=== PATIENT | female | born 1985 | race American Indian/Alaskan Native ===

== ENCOUNTER 2020-05-03 11:29 | Outpatient (CLI) | payer OTHER ==
[2020-05-03] MEDS ORDERED: BETAMET ACET/BETAMET NA PH 6 MG/ML INJ 5 ML MDV IM SCH (11:36)
== END 2020-05-03 11:51 | disposition home or self-care (01) ==
LOC: TRG 11:29 → APU 11:29 → TRG 11:51
PROVIDERS: ATTEND Obstetrics & Gynecology
DX: O47.02 False labor before 37 completed weeks of gestation, second trimester (principal); Z3A.25 25 weeks gestation of pregnancy
CPT/HCPCS: 96372; J0702

== ENCOUNTER 2020-05-04 11:13 | Outpatient (CLI) | payer OTHER ==
[2020-05-04 12:11] VITALS: BP 143/98
[2020-05-04] MEDS ORDERED: BETAMET ACET/BETAMET NA PH 6 MG/ML INJ 5 ML MDV IM ONE (12:57)
== END 2020-05-04 13:15 | disposition home or self-care (01) ==
LOC: TRG 11:13 → APU 11:15 → TRG 13:15
PROVIDERS: ATTEND Obstetrics & Gynecology
DX: O47.02 False labor before 37 completed weeks of gestation, second trimester (principal); Z3A.26 26 weeks gestation of pregnancy
CPT/HCPCS: 96372; J0702

== ENCOUNTER 2020-05-06 13:57 | Inpatient (IN) | payer OTHER ==
[2020-05-06] MEDS ORDERED: LACTATED RINGERS 500 ML IV ONE (14:50)
[2020-05-06] MEDS ORDERED: ACETAMINOPHEN 325 MG TAB PO PRN (14:53)
[2020-05-06] MEDS ORDERED: DOCUSATE SODIUM 100 MG CAP PO PRN (14:53)
[2020-05-06] MEDS ORDERED: LACTATED RINGERS 1,000 ML IV SCH (15:00)
[2020-05-06] MEDS: hydrALAZINE 20 MG/1 ML INJ IV PRN ×2 (16:24→17:05)
[2020-05-06 16:42] LABS: Basophils % (Auto) 0.1 % (0.0-1.8); Eosinophils % (Auto) 0.3 % (0.0-4.3); Hematocrit 31.6 % (30.3-42.9); Hemoglobin 10.5 gm/dl (10.1-14.3); Lymphocytes % (Auto) 18.3 % (13.4-35.0); Mean Corpuscular HGB Conc 33 % (30-34); Mean Corpuscular Volume 89 fl (79-97); Monocytes % (Auto) 9.6 % (0.0-7.3); Platelet Count 223 K/mm3 (140-440); Red Blood Count 3.57 M/mm3 (3.65-5.03); Red Cell Distribution Width 14.7 % (13.2-15.2)
[2020-05-06 17:10] LABS: Alanine Aminotransferase 363 units/L (7-56)
[2020-05-06 18:15] LABS: Bilirubin,Urine NEG (Negative); Blood,Urine SM (Negative); Color,Urine Yellow (Yellow); Urobilinogen,Urine < 2.0 mg/dL (<2.0)
[2020-05-06 18:18] LABS: Protein,Urine >500 mg/dL (Negative)
[2020-05-06] MEDS: carvediloL 25 MG TAB PO SCH (22:35)
[2020-05-07] MEDS: hydrALAZINE 20 MG/1 ML INJ IV PRN ×4 (02:23→18:29)
[2020-05-07] MEDS ORDERED: ACETAMINOPHEN 500 MG TAB PO PRN (04:01)
[2020-05-07] MEDS: PRENATAL VIT27-FE FUMARATE-FOLIC ACID VIT TAB PO SCH ×2 (10:48→11:16)
[2020-05-07] MEDS: carvediloL 25 MG TAB PO SCH ×2 (10:49→22:07)
--- NOTE | 2020-05-07 12:03 | History and Physical Report ---
History of Present Illness Date of examination: 05/07/20 Date of admission: 05/06/20 13:57 Chief complaint: chronic hypertension History of present illness: 35y/o @ 26+3 weeks presents for inpatient management. Her course is complicated by multi co-morbidities to include chronic hypertension, cardiovascular compromise, chronic renal insufficiency. Patient is being followed by MFM with recent findings of IUGR. Blood pressures have been labile on Carvedilol. Patient received betamethasone 05/02/20. Patient admits this was an unplanned . Will need to schedule permanent sterilization after delivery. Past History Past Medical History: hypertension, other (heart failure; chronic renal insufficiency) Past Surgical History: no surgical history Social history: single - Obstetrical History Expected Date of Delivery: 08/10/20 Actual Gestation: 26 Week(s) 3 Day(s) : 3 Para: 1 Hx # Term Pregnancies: 1 Number of Pregnancies: 1 Spontaneous Abortions: 0 Induced : 0 Number of Living Children: 2 Medications and Allergies Allergies Allergy/AdvReac Type Severity Reaction Status Date / Time No Known Allergies Allergy Verified 05/03/20 11:34 Home Medications Medication Instructions Recorded Confirmed Last Taken Type carvediloL [Coreg] 25 tab PO BID 05/06/20 05/06/20 05/06/20 07:30 History Active Meds: Active Medications Acetaminophen (Acetaminophen 500 Mg Tab) 1,000 mg PO Q4H PRN PRN Reason: Headache Last Admin: 05/07/20 04:13 Dose: 1,000 mg Documented by: Acetaminophen (Acetaminophen 325 Mg Tab) 650 mg PO Q4H PRN PRN Reason: Pain MILD(1-3)/Fever >100.5 Carvedilol (Carvedilol 25 Mg Tab) 25 mg PO BID [facility] Last Admin: 05/07/20 10:49 Dose: 25 mg Documented by: Docusate Sodium (Docusate Sodium 100 Mg Cap) 100 mg PO Q12H PRN PRN Reason: Constipation Hydralazine HCl (Hydralazine 20 Mg/1 Ml Inj) 5 mg IV Q30MIN PRN PRN Reason: Blood Pressure Last Admin: 05/07/20 09:37 Dose: 5 mg Documented by: Multivitamins/Iron/Calcium ( [id number] Fumarate-Folic Acid Vit Tab) 1 each PO QDAY [facility] Last Admin: 05/07/20 11:16 Dose: Not Given Documented by: Review of Systems All systems: negative - Vital Signs Vital signs: Vital Signs Pulse BP 96 H 154/109 05/06/20 14:51 05/06/20 14:51 Temp Pulse Resp BP Pulse Ox 97.8 F 95 H 20 141/99 100 05/07/20 08:01 05/07/20 11:53 05/07/20 08:01 05/07/20 11:37 05/07/20 11:53 - Physical Exam Breasts: Positive: deferred Lungs: Positive: Clear to auscultation Abdomen: Positive: normal appearance Results Result Diagrams: 05/06/20 14:50 05/06/20 14:50 Abnormal lab results 05/06/20 05/06/20 05/06/20 Range/Units 14:50 14:50 16:55 RBC 3.57 L (3.65-5.03) M/mm3 [place] % (Auto) 9.6 H (0.0-7.3) % [place] # (Auto) 1.0 H (0.0-0.8) K/mm3 Seg Neutrophils % 71.7 H (40.0-70.0) % AST 152 H (5-40) units/L ALT 363 H (7-56) units/L Lactate Dehydrogenase 294 H (91-180) units/L Urine WBC (Auto) 12.0 H (0.0-6.0) /HPF U Epithel Cells (Auto) 18.0 H (0-13.0) /HPF All other labs normal. Assessment and Plan - Patient Problems (1) Chronic renal failure Current Visit: Yes Status: Acute Plan to address problem: patient admitted for prolonged inpatient management will consult hospitalist, NICU, M (2) Heart failure Current Visit: Yes Status: Acute (3) Chronic hypertension affecting Current Visit: Yes Status: Acute (4) Intrauterine growth restriction (IUGR) affecting care of mother Current Visit: Yes Status: Acute
--- NOTE | 2020-05-07 12:30 | Consultation ---
History of Present Illness - Reason for Consult Consult date: 05/07/20 Medical Management Requesting physician: DYLON VALLADARES - History of Present Illness 35 YO Female at 23 weeks gestation with CHF, HTN. Consult placed by Dr. Olson form medical management. Patient seen and evaluated in her room. Patient resting comfortably in bed. Patient denies fever, chills, chest pain, palpitation, productive cough, recent ill contacts, shortness of breath, decre ased exercise tolerance, orthopnea, paroxysmal nocturnal dyspnea, or known exposure to COVID-19. Patient denies pain. No reported nursing events. Past History Past Medical History: heart failure, hypertension Past Surgical History: No surgical history, Other (Reviewed) Social history: single. denies: smoking, alcohol abuse, prescription drug abuse Family history: hypertension Medications and Allergies Allergies Allergy/AdvReac Type Severity Reaction Status Date / Time No Known Allergies Allergy Verified 05/03/20 11:34 Home Medications Medication Instructions Recorded Confirmed Last Taken Type carvediloL [Coreg] 25 tab PO BID 05/06/20 05/06/20 05/06/20 07:30 History Active Meds: Active Medications Acetaminophen (Acetaminophen 500 Mg Tab) 1,000 mg PO Q4H PRN PRN Reason: Headache Last Admin: 05/07/20 04:13 Dose: 1,000 mg Documented by: Acetaminophen (Acetaminophen 325 Mg Tab) 650 mg PO Q4H PRN PRN Reason: Pain MILD(1-3)/Fever >100.5 Carvedilol (Carvedilol 25 Mg Tab) 25 mg PO BID [facility] Last Admin: 05/07/20 10:49 Dose: 25 mg Documented by: Docusate Sodium (Docusate Sodium 100 Mg Cap) 100 mg PO Q12H PRN PRN Reason: Constipation Hydralazine HCl (Hydralazine 20 Mg/1 Ml Inj) 5 mg IV Q30MIN PRN PRN Reason: Blood Pressure Last Admin: 05/07/20 09:37 Dose: 5 mg Documented by: Multivitamins/Iron/Calcium ( [id number] Fumarate-Folic Acid Vit Tab) 1 each PO QDAY [facility] Last Admin: 05/07/20 11:16 Dose: Not Given Documented by: Review of Systems Constitutional: no weight loss, no fever, no chills, no anorexia Ears, nose, mouth and throat: no ear pain, no ear discharge, no tinnitis, no decreased hearing, no nose pain, no nasal congestion Breasts: no change in shape, no swelling, no mass Cardiovascular: no chest pain, no orthopnea, no rapid/irregular heart beat, no syncope, no lightheadedness, no shortness of breath, no dyspnea on exertion, no paroxysmal nocturnal dyspnea, no claudication Respiratory: no cough, no excessive sputum, no hemoptysis, no shortness of breath, no dyspnea on exertion Gastrointestinal: no nausea, no vomiting, no diarrhea Genitourinary Female: no pelvic pain, no dysuria, no urinary frequency, no urgency Rectal: no pain, no incontinence, no bleeding Musculoskeletal: no neck stiffness, no neck pain, no shooting arm pain, no arm numbness/tingling, no low back pain, no shooting leg pain, no leg numbness/tingling Integumentary: no rash, no pruritis, no redness, no sores, no wounds Neurological: no paralysis, no weakness, no parathesias, no numbness, no tingling, no seizures, no syncope Psychiatric: no anxiety, no memory loss, no change in sleep habits, no sleep disturbances, no insomnia, no hypersomnia, no change in libido Endocrine: no cold intolerance, no heat intolerance, no polyphagia, no excessive thirst, no polydipsia, no excessive sweating Hematologic/Lymphatic: no easy bruising, no easy bleeding Allergic/Immunologic: no urticaria, no allergic rhinitis, no wheezing Exam - Constitutional Vitals: Temp Pulse Resp BP Pulse Ox 97.8 F 98 H 20 140/99 100 05/07/20 08:01 05/07/20 12:18 05/07/20 08:01 05/07/20 12:07 05/07/20 12:18 General appearance: Present: obese - EENT Eyes: Present: PERRL ENT: hearing intact, clear oral mucosa - Neck Neck: Present: supple, normal ROM - Respiratory Respiratory effort: normal Respiratory: bilateral: CTA - Cardiovascular Heart Sounds: Present: S1 & S2. Absent: rub, click - Extremities Extremities: pulses symmetrical, No edema Peripheral Pulses: within normal limits - Abdominal General gastrointestinal: Present: soft, non-tender, normal bowel sounds, other (Protuberant, gravid uterus) Female genitourinary: Present: normal - Integumentary Integumentary: Present: clear, warm, dry - Musculoskeletal Musculoskeletal: gait normal, strength equal bilaterally - Psychiatric Psychiatric: appropriate mood/affect, intact judgment & insight - Neurologic Neurologic: CNII-XII intact, moves all extremities Results - Labs CBC & Chem 7: 05/06/20 14:50 05/06/20 14:50 Labs: Abnormal lab results 05/06/20 05/06/20 05/06/20 Range/Units 14:50 14:50 16:55 RBC 3.57 L (3.65-5.03) M/mm3 [place] % (Auto) 9.6 H (0.0-7.3) % [place] # (Auto) 1.0 H (0.0-0.8) K/mm3 Seg Neutrophils % 71.7 H (40.0-70.0) % AST 152 H (5-40) units/L ALT 363 H (7-56) units/L Lactate Dehydrogenase 294 H (91-180) units/L Urine WBC (Auto) 12.0 H (0.0-6.0) /HPF U Epithel Cells (Auto) 18.0 H (0-13.0) /HPF Assessment and Plan - Patient Problems (1) Hypertension Current Visit: Yes Status: Acute Qualifiers: Hypertension type: essential hypertension Qualified Code(s): I10 - Essential (primary) hypertension Plan to address problem: Continue medical management with beta-[place] therapy, supportive care. Monitor blood pressure every shift. (2) Heart failure Current Visit: Yes Status: Acute Qualifiers: Heart failure chronicity: chronic Plan to address problem: Strict I's/O, monitor urine output every shift, daily weight, cardiology team consulted. Patient reports echocardiogram as outpatient which was completed approximately [address] Jay of [facility]. No active decompensation at this time.
--- NOTE | 2020-05-07 14:58 | Consultation ---
Consult Note - Parent Education I met with parent(s) and discussed the following:: Need for NICU admission, Poss ible need for intubation and surfactant or other resp support, Temperature regulation, Head ultrasounds to evaluate IVH, Eye exams for ROP screening, Possible need for IV fluids/TPN and IV antibiotics, Possible need for umbilical lines, Importance of providing breast milk & encouraged pumping aft delivery, Donor breast milk if baby meets criteria after , Slow feeding advancement and monitoring of tolerance. NG/OG feeds, Data for survival & survival without significant co-morbidities Parent(s) demonstrated understanding of all the information:: Yes Additional Comment: 26 weeks IUGR with absent end diastolic flow. Maternal hx of pre-eclampsia with severe features now with chronic renal insufficency and cardiac morbidity. Mother Received Betamethasone on 05/02. Assessment and Plan - Assessment Gestation:: 26 (26 weeks 3 days) Estimated Weight: ~700 g Baby's gender: Male - Plan Plan: Please notify NICU when delivery is imminent NICU will attend delivery Please call NICU with questions
[2020-05-07] MEDS: ACETAMINOPHEN 325 MG TAB PO PRN (20:53)
[2020-05-08] MEDS: hydrALAZINE 20 MG/1 ML INJ IV PRN ×4 (07:31→21:12)
[2020-05-08] MEDS: carvediloL 25 MG TAB PO SCH ×2 (09:55→21:56)
[2020-05-08] MEDS: PRENATAL VIT27-FE FUMARATE-FOLIC ACID VIT TAB PO SCH (09:57)
--- NOTE | 2020-05-08 11:19 | Progress Note ---
Assessment and Plan - Patient Problems (1) Chronic renal failure Current Visit: Yes Status: Acute (2) Heart failure Current Visit: Yes Status: Acute Qualifiers: Heart failure chronicity: chronic (3) Chronic hypertension affecting Current Visit: Yes Status: Acute (4) Intrauterine growth restriction (IUGR) affecting care of mother Current Visit: Yes Status: Acute Plan to address problem: will redraw chemistries and CBC Initiate magnesium sulfate therapy at 1 g an hour Anticipate that maternal- medicine will recommend delivery; awaiting consult currently will add labetalol to p.o. antihypertensive regimen (5) Preeclampsia Current Visit: Yes Status: Acute Subjective - Subjective Date of service: 05/08/20 Interval history: 35y/o @ 26+4 weeks presents for inpatient management. Patient has evidence of elevated liver function tests with normal platelet count. Laboratories will be repeated today. Also will initiate IV magnesium sulfate therapy at a decreased rate secondary to renal insufficiency. Patient denies any associated symptoms today. Discussed with patient the likelihood that we will need to proceed with induction of labor. Awaiting recommendations from maternal- medicine. Patient also exhibiting worsening blood pressure readings. Patient reports: no new complaints Objective - Vital Signs Vital Signs: Vital Signs - 12hr 05/07/20 05/08/20 05/08/20 23:37 00:07 00:37 Temperature Pulse Rate 94 H 93 H 94 H Respiratory Rate Blood Pressure 148/88 141/83 156/89 Blood Pressure [Right] 05/08/20 05/08/20 05/08/20 01:07 01:37 02:12 Temperature Pulse Rate 92 H 94 H 96 H Respiratory Rate Blood Pressure 145/96 150/93 141/98 Blood Pressure [Right] 05/08/20 05/08/20 05/08/20 02:13 02:37 03:07 Temperature 98.2 F Pulse Rate 90 93 H Respiratory 18 Rate Blood Pressure 169/108 161/111 Blood Pressure [Right] 05/08/20 05/08/20 05/08/20 03:37 04:07 04:37 Temperature Pulse Rate 92 H 96 H 95 H Respiratory Rate Blood Pressure 165/100 172/105 161/104 Blood Pressure [Right] 05/08/20 05/08/20 05/08/20 05:07 06:07 06:37 Temperature Pulse Rate 93 H 90 87 Respiratory Rate Blood Pressure 157/108 159/116 158/109 Blood Pressure [Right] 05/08/20 05/08/20 05/08/20 07:07 07:19 07:21 Temperature 97.5 F L Pulse Rate 88 92 H 92 H Respiratory 20 Rate Blood Pressure 156/111 151/111 Blood Pressure 151/111 [Right] 05/08/20 05/08/20 05/08/20 07:31 07:37 09:07 Temperature Pulse Rate 92 H 89 93 H Respiratory Rate Blood Pressure 151/111 141/101 160/95 Blood Pressure [Right] 05/08/20 05/08/20 05/08/20 09:37 09:55 10:07 Temperature Pulse Rate 93 H 93 H 95 H Respiratory Rate Blood Pressure 160/99 160/99 161/103 Blood Pressure [Right] 05/08/20 05/08/20 10:37 11:08 Temperature Pulse Rate 93 H 94 H Respiratory Rate Blood Pressure 155/100 161/108 Blood Pressure [Right] - Labs Labs: Abnormal Labs 05/06/20 05/06/20 05/06/20 14:50 14:50 16:55 RBC 3.57 L [place] % (Auto) 9.6 H [place] # (Auto) 1.0 H Seg Neutrophils % 71.7 H AST 152 H ALT 363 H Lactate Dehydrogenase 294 H Urine WBC (Auto) 12.0 H U Epithel Cells (Auto) 18.0 H
--- NOTE | 2020-05-08 11:32 | Consultation ---
Past History Past Medical History: heart failure, hypertension Past Surgical History: No surgical history, Other (Reviewed) Social history: single. denies: smoking, alcohol abuse, prescription drug abuse Family history: hypertension Medications and Allergies Allergies Allergy/AdvReac Type Severity Reaction Status Date / Time No Known Allergies Allergy Verified 05/03/20 11:34 Home Medications Medication Instructions Recorded Confirmed Last Taken Type carvediloL [Coreg] 25 tab PO BID 05/06/20 05/06/20 05/06/20 07:30 History Active Meds: Active Medications Acetaminophen (Acetaminophen 500 Mg Tab) 1,000 mg PO Q4H PRN PRN Reason: Headache Last Admin: 05/07/20 04:13 Dose: 1,000 mg Documented by: Acetaminophen (Acetaminophen 325 Mg Tab) 650 mg PO Q4H PRN PRN Reason: Pain MILD(1-3)/Fever >100.5 Last Admin: 05/07/20 20:53 Dose: 650 mg Documented by: Carvedilol (Carvedilol 25 Mg Tab) 25 mg PO BID [facility] Last Admin: 05/08/20 09:55 Dose: 25 mg Documented by: Docusate Sodium (Docusate Sodium 100 Mg Cap) 100 mg PO Q12H PRN PRN Reason: Constipation Hydralazine HCl (Hydralazine 20 Mg/1 Ml Inj) 5 mg IV Q30MIN PRN PRN Reason: Blood Pressure Last Admin: 05/08/20 07:31 Dose: 5 mg Documented by: Magnesium Sulfate (Magnesium Sulfate 40gm/1000ml) 40 gm in 1,000 mls @ 25 mls/hr IV DIRECT INDY Labetalol HCl (Labetalol 200 Mg Tab) 300 mg PO BID [facility] Multivitamins/Iron/Calcium ( [id number]-[id number] Fumarate-Folic Acid Vit Tab) 1 each PO QDAY [facility] Last Admin: 05/08/20 09:57 Dose: Not Given Documented by: Nifedipine (Nifedipine Xl 30 Mg Tab) 30 mg PO Q12HR [facility] Physical Examination Vital Signs Pulse BP 96 H 154/109 05/06/20 14:51 05/06/20 14:51 Results 05/06/20 14:50 05/06/20 14:50 Assessment and Plan full c/s dictated add nifedipine to coreg if ok w/ Dr. Diaz. thx
[2020-05-08] MEDS ORDERED: LACTATED RINGERS 1,000 ML ONE (11:40)
[2020-05-08] MEDS: MAGNESIUM SULFATE 40GM/1000ML 40 GM/1,000 ML BAG IV SCH ×2 (12:08→18:10)
[2020-05-08] MEDS: NIFEdipine XL 30 MG TAB PO SCH (12:31)
--- NOTE | 2020-05-08 14:14 | Consultation ---
History of Present Illness Consult date: 05/08/20 Requesting physician: DYLON VALLADARES Reason for consult: gestational hypertension History of present illness: As you are aware, this is a 35 year-old para 1102 who is currently at 26 weeks 4 day gestation based on an LUI of 08/10/20 This is a patient that has been followed by [facility] during this due to previous complicated by superimposed preeclampsia, congestive heart failure and renal insufficiency. At the time of admission her last her ultrasound showed: US 05/02/20 EFW at 709 grams 7% with AC at 4% and AEDF. At that time she DECLINED hospitalization. On Saturday she was noted to have elevated blood pressure at 156/118 and a repeat BP of 151/113. Patient does have a history of CHTN. Following admission she was noted to have markedly elevated LFTs suggestive of superimposed preeclampsia with severe features. We would recommend observation, stabilization followed by DELIVERY. Her baseline 24 hour urine was NOT AVAILABLE Her follow-up 24 hour urine is PENDING. PREVIOUS BLOOD PRESSURE: 157/99 PAST OBSTETRICAL HISTORY: 2010: at term. BW: 8 pounds 2012: at 34 weeks. BW: 4 pound complicated by CHF and superimposed preeclampsia. PAST MEDICAL HISTORY: See reports in patient's chart. Patient does have a history of chronic hypertension since 2018. Congestive heart failure since 2018 Renal heart failure (Idiopathic) chronic renal insufficiency with baseline cr eatinine 1.2 mg/dL (repeated couple weeks ago) PREVIOUS ECHOCARDIOGRAM: Question of heart failure history, awaiting Cardiology consultation - (ECHO done 02/17/20 states EF was 42-45% was at 30% 8 months ago - Dr. Jay) - Next appointment in April 2020 PREVIOUS ULTRASOUNDS AT [facility]: US 05/02/20 EFW at 709 grams 7% with AC at 4% and AEDF. At that time she DECLINED hospitalization. CURRENT MEDICATIONS: Continue Carvedilol 25 mg BID ULTRASOUND AT [facility] (see chart): PENDING. AVAILABLE LABS: 24 HOUR URINE: PENDING See chart. WBC: 10.8 HGB: 10.5 HCT: 31.6 PLT: 223 AST: 152 ALT: -363 - ABSENT END DIASTOLIC FLOW (AEDF) Absent end diastolic flow (AEDF) in an umbilical artery Doppler assessment is a useful feature which indicates underlying vascular stress if detected in mid or late . The associations of AEDV include: intra-uterine growth restriction (IUGR) increased risk of thrombocytopenia increased risk of necrotizing enterocolitis Past History Past Medical History: hypertension, other (heart failure; chronic renal insufficiency) Past Surgical History: no surgical history - Obstetrical History : 3 Medications and Allergies Allergies Allergy/AdvReac Type Severity Reaction Status Date / Time No Known Allergies Allergy Verified 05/03/20 11:34 Home Medications Medication Instructions Recorded Confirmed Last Taken Type carvediloL [Coreg] 25 tab PO BID 05/06/20 05/06/20 05/06/20 07:30 History Active Meds: Active Medications Acetaminophen (Acetaminophen 500 Mg Tab) 1,000 mg PO Q4H PRN PRN Reason: Headache Last Admin: 05/07/20 04:13 Dose: 1,000 mg Documented by: Acetaminophen (Acetaminophen 325 Mg Tab) 650 mg PO Q4H PRN PRN Reason: Pain MILD(1-3)/Fever >100.5 Last Admin: 05/07/20 20:53 Dose: 650 mg Documented by: Carvedilol (Carvedilol 25 Mg Tab) 25 mg PO BID [facility] Last Admin: 05/08/20 09:55 Dose: 25 mg Documented by: Docusate Sodium (Docusate Sodium 100 Mg Cap) 100 mg PO Q12H PRN PRN Reason: Constipation Hydralazine HCl (Hydralazine 20 Mg/1 Ml Inj) 5 mg IV Q30MIN PRN PRN Reason: Blood Pressure Last Admin: 05/08/20 12:54 Dose: 5 mg Documented by: Magnesium Sulfate (Magnesium Sulfate 40gm/1000ml) 40 gm in 1,000 mls @ 25 mls/hr IV DIRECT [facility] Last Admin: 05/08/20 12:08 Dose: 1 gm/hr, 25 mls/hr Documented by: Multivitamins/Iron/Calcium ( [id number] Fumarate-Folic Acid Vit Tab) 1 each PO QDAY [facility] Last Admin: 05/08/20 09:57 Dose: Not Given Documented by: Nifedipine (Nifedipine Xl 30 Mg Tab) 30 mg PO Q12H [facility] Last Admin: 05/08/20 12:31 Dose: 30 mg Documented by: - Vital Signs Vital signs: Vital Signs Pulse BP 96 H 154/109 05/06/20 14:51 05/06/20 14:51 Temp Pulse Resp BP Pulse Ox 97.5 F L 92 H 20 154/97 98 05/08/20 07:21 05/08/20 14:10 05/08/20 07:21 05/08/20 13:59 05/08/20 14:10 Results Result Diagrams: 05/06/20 14:50 05/06/20 14:50 All other labs normal. Assessment and Plan ASSESSMENT IUP at 26 weeks 4 day gestation. Admitted with new onset hypertension. Rule out preeclampsia with severe features. Abnormal Doppler on admission: AEDV growth restriction (per previous ultrasound). History of previous delivery with preeclampsia History of congestive heart failure Renal insufficiency Rule out atypical HELLP syndrome Magnesium sulfate for neuroprotection and eclampsia prophylaxis. Agree with added Labetalol. Category 1 tracing Not a candidate for outpatient management. Likely for delivery when stable RECOMMENDATIONS: 1. We would recommend continued inpatient management for this patient. 2. Repeat LFTs to rule out the (unlikely) possibility of lab error. 3. Continue with BPP and Doppler twice weekly. 4. Please obtain an initial EFW to follow-up the most recent assessment from [facility] earlier this month. 5. We agree with magnesium sulfate for neuroprotection. 6. Patient has previously received steroids for lung maturation. 7. Appreciate a neonatology consultation. 8. Cardiology consultation 9. Agree with current Carvedilol 25 mg BID 10. Add Labetalol. 11. We will address additional antihypertensive medications as indicated. 12. At present; there is NO indication for delivery; however, I would monitor closely for the signs and symptoms of severe preeclampsia (noted below). 13. At 26+ weeks gestation; it would appear that there is some benefit to an expectant management protocol to prolong gestation in order to improve outcome without increasing maternal morbidity. 14. Although, we have suggested in our previous consultation if she continues to have persistent AEDF we would target delivery at 33 weeks unless there is a obstetrical, clinical or indication for delivery. 15. In a patient with MILD preeclampsia we recommend DELIVERY at 37 weeks. 16. In a patient with SEVERE preeclampsia we recommend DELIVERY either AT DIAGNOSIS or at 34 weeks gestation. ? Reference: REFERENCE: Medically indicated late- and early-term deliveries. Committee Opinion No. [id number]. [employer]. Obstet Gynecol 2013;121:12660. 17. The indications for discontinuation of expectant management and DELIVERY in this patient would include ANY of the following: heart rate abnormalities, (ie, bradycardia , repetitive late or variable decelerations) Significant new onset proteinuria Thrombocytopenia Hemolysis, Elevation in liver function tests Blood pressure that is very labile or poorly controlled with reasonable doses of intravenous labetalol Symptoms of severe pre-eclampsia epigastric discomfort, headache, dizziness, blurred vision, RUQ pain, seizure. Standard obstetrical indications 18. Maternal stabilization and DELIVERY is currently recommended based on and poorly controlled hypertension during observation. 19. Accordingly we would classify this patient as having severe superimposed preeclampsia and would recommend DELIVERY rather than continued expectant management. 20. As noted above; with a confirmed diagnosis of preeclampsia would recommend proceeding with DELIVERY in this patient in view of the multiple factors which place this at risk for adverse outcome. 21. It would appear the risks for prolongation (ie severe preeclampsia, maternal sezures, placental abruption, HELLP, uteroplacental i nsufficiency and possible demise in utero) clearly outweigh the theoretical concerns regarding immaturity. 22. Mode of delivery should be based on Mccullough score, FHR tracing, and other clinical parameters. Thank you for allowing us to participate in the care of this patient. We look forward to the opportunity to assist in her continued management. If you have any questions, we may be reached [phone]. Ange Vivar M.D.
[2020-05-08] MEDS ORDERED: METOCLOPRAMIDE 10 MG/2 ML INJ IV SCH (14:36)
[2020-05-08] MEDS ORDERED: FAMOTIDINE 20 MG/2 ML INJ IV SCH (14:36)
[2020-05-08] MEDS ORDERED: BICITRA ORAL LIQD 30ML PO SCH (14:36)
[2020-05-08] MEDS ORDERED: FAMOTIDINE 20 MG/2 ML INJ IV ONE (14:45)
[2020-05-08] MEDS ORDERED: METOCLOPRAMIDE 10 MG/2 ML INJ ONE (14:45)
[2020-05-08] MEDS ORDERED: LACTATED RINGERS 1,000 ML IV SCH (14:45)
[2020-05-08] MEDS ORDERED: ceFAZolin/Water 2 GM/20 ML 2 GM/20 ML SYRINGE IV ONE (14:46)
[2020-05-08] MEDS ORDERED: OXYTOCIN DRIP 30,000 MILLIUNITS/500 ML BAG IV ONE (14:46)
[2020-05-08 15:10] LABS: Hemoglobin 10.6 gm/dl (10.1-14.3)
[2020-05-08 15:18] LABS: Hematocrit 32.6 % (30.3-42.9); Mean Corpuscular Volume 88 fl (79-97); Red Blood Count 3.69 M/mm3 (3.65-5.03)
[2020-05-08 15:19] LABS: Mean Corpuscular HGB Conc 33 % (30-34); Platelet Count 247 K/mm3 (140-440); Red Cell Distribution Width 14.6 % (13.2-15.2)
[2020-05-08 15:22] LABS: Alanine Aminotransferase 480 units/L (7-56); BUN/Creatinine Ratio 14; Blood Urea Nitrogen 15 mg/dL (7-17); Calcium 8.4 mg/dL (8.4-10.2); Hemolysis Index 2
[2020-05-08] MEDS ORDERED: PROMETHAZINE 25 MG RECT SUPP PR PRN (15:35)
[2020-05-08] MEDS ORDERED: NALOXONE 0.4 MG/1 ML INJ IV PRN ×3 (15:35→17:17)
[2020-05-08] MEDS ORDERED: ONDANSETRON 4 MG/2 ML INJ IV PRN ×2 (15:35→17:17)
[2020-05-08] MEDS ORDERED: PROMETHAZINE 25 MG TAB PO PRN (15:35)
--- NOTE | 2020-05-08 15:40 | Anesthesia Consultation ---
Anesthesia Consult and Med Hx Date of service: 05/08/20 - Airway Anesthetic Teeth Evaluation: Good ROM Head & Neck: Adequate Mental/Hyoid Distance: Adequate Mallampati Class: Class III Intubation Access Assessment: Probably Good - Pulmonary Exam CTA: Yes - Cardiac Exam Cardiac Exam: RRR - Pre-Operative Health Status ASA Pre-Surgery Classification: ASA3 Proposed Anesthetic Plan: Spinal - Pre-Anesthesia Comment Pre-Anesthesia Comments: PMH: CHF last 2013, kidney disease - Pulmonary Hx Smoking: No Hx Asthma: No Hx Respiratory Symptoms: No SOB: No COPD: No Home Oxygen Therapy: No Hx Pneumonia: No Hx Sleep Apnea: No - Cardiovascular System Hx Hypertension: Yes (PI) Hx Coronary Artery Disease: No Hx Heart Attack/AMI: No Hx Angina: No Hx Percutaneous Transluminal Coronary Angioplasty (PTCA): No Hx Cardia Arrhythmia: No Hx Pacemaker: No Hx Internal Defibrillator: No Hx Valvular Heart Disease: No Hx Heart Murmur: No Hx Peripheral Vascular Disease: No - Central Nervous System Hx Neuromuscular Disorder: No Hx Seizures: No CVA: No Hx Back Pain: No Hx Psychiatric Problems: No - Gastrointestinal Hx Ulcer: No Hx Gastroesophageal Reflux Disease: No - Endocrine Hx Renal Disease: Yes ([facility] 2013) Hx End Stage Renal Disease: No Hx Cirrhosis: No Hx Liver Disease: No Hx Insulin Dependent Diabetes: No Hx Non-Insulin Dependent Diabetes: No Hx Thyroid Disease: No Hx Hypothyroidism: No Hx Hyperthyroidism: No - Hematic Hx Anemia: No Hx Sickle Cell Disease: No - Other Systems Hx Alcohol Use: No Hx Substance Use: No Hx Cancer: No Hx Obesity: Yes
--- NOTE | 2020-05-08 15:42 | Anesthesia Day of Surgery ---
Anesthesia Day of Surgery - Day of Surgery Patient Examined: Yes Patient H&P Reviewed: Yes Patient is NPO: Yes (0800) Beta Blockers: No Cardiac Clearance: No Pulmonary Clearance: No Jeremy's Test: N/A
--- NOTE | 2020-05-08 15:51 | Progress Note ---
Assessment and Plan - Patient Problems (1) Chronic renal failure Current Visit: Yes Status: Acute (2) Heart failure Current Visit: Yes Status: Acute Qualifiers: Heart failure chronicity: chronic (3) Chronic hypertension affecting Current Visit: Yes Status: Acute (4) Intrauterine growth restriction (IUGR) affecting care of mother Current Visit: Yes Status: Acute (5) Preeclampsia Current Visit: Yes Status: Acute Plan to address problem: will proceed with a primary delivery Subjective - Subjective Date of service: 05/08/20 Interval history: 35y/o @ 26+4 weeks presents for inpatient management. Upon further discussion with [facility], the recommendation is to proceed with delivery. Patient is remote from delivery with a fetus exhibiting IUGR. Concern for the reserve of the fetus to withstand the stress of labor and vaginal delivery. Will proceed with a primary delivery. The patient was counseled that it was in her best interest to proceed with a tubal ligation also however the patient has declined secondary to mandaeism reasons. Patient reports: no new complaints Objective - Vital Signs Vital Signs: Vital Signs - 12hr 05/08/20 05/08/20 05/08/20 04:07 04:37 05:07 Temperature Pulse Rate 96 H 95 H 93 H Respiratory Rate Blood Pressure 172/105 161/104 157/108 Blood Pressure [Right] O2 Sat by Pulse Oximetry 05/08/20 05/08/20 05/08/20 06:07 06:37 07:07 Temperature Pulse Rate 90 87 88 Respiratory Rate Blood Pressure 159/116 158/109 156/111 Blood Pressure [Right] O2 Sat by Pulse Oximetry 05/08/20 05/08/20 05/08/20 07:19 07:21 07:31 Temperature 97.5 F L Pulse Rate 92 H 92 H 92 H Respiratory 20 Rate Blood Pressure 151/111 151/111 Blood Pressure 151/111 [Right] O2 Sat by Pulse Oximetry 05/08/20 05/08/20 05/08/20 07:37 09:07 09:37 Temperature Pulse Rate 89 93 H 93 H Respiratory Rate Blood Pressure 141/101 160/95 160/99 Blood Pressure [Right] O2 Sat by Pulse Oximetry 05/08/20 05/08/20 05/08/20 09:55 10:07 10:37 Temperature Pulse Rate 93 H 95 H 93 H Respiratory Rate Blood Pressure 160/99 161/103 155/100 Blood Pressure [Right] O2 Sat by Pulse Oximetry 05/08/20 05/08/20 05/08/20 11:08 11:37 11:43 Temperature Pulse Rate 94 H 104 H 100 H Respiratory Rate Blood Pressure 161/108 170/104 166/105 Blood Pressure [Right] O2 Sat by Pulse Oximetry 05/08/20 05/08/20 05/08/20 11:44 11:49 11:50 Temperature Pulse Rate 39 L Respiratory Rate Blood Pressure Blood Pressure [Right] O2 Sat by Pulse 68 L 72 L 94 Oximetry 05/08/20 05/08/20 05/08/20 11:54 11:55 11:59 Temperature Pulse Rate 74 39 L Respiratory Rate Blood Pressure Blood Pressure [Right] O2 Sat by Pulse 86 90 93 Oximetry 05/08/20 05/08/20 05/08/20 12:05 12:07 12:10 Temperature Pulse Rate 88 98 H 58 L Respiratory Rate Blood Pressure 178/130 Blood Pressure [Right] O2 Sat by Pulse 94 0 L Oximetry 05/08/20 05/08/20 05/08/20 12:15 12:16 12:18 Temperature Pulse Rate 57 L 98 H Respiratory Rate Blood Pressure 170/117 Blood Pressure [Right] O2 Sat by Pulse 88 69 L Oximetry 05/08/20 05/08/20 05/08/20 12:20 12:21 12:22 Temperature Pulse Rate 97 H 113 H 78 Respiratory Rate Blood Pressure 165/118 165/118 Blood Pressure [Right] O2 Sat by Pulse 70 L 69 L Oximetry 05/08/20 05/08/20 05/08/20 12:25 12:28 12:30 Temperature Pulse Rate 59 L 96 H 101 H Respiratory Rate Blood Pressure 169/115 Blood Pressure [Right] O2 Sat by Pulse 72 L 99 Oximetry 05/08/20 05/08/20 05/08/20 12:34 12:35 12:40 Temperature Pulse Rate 97 H 98 H 96 H Respiratory Rate Blood Pressure 168/114 164/110 Blood Pressure [Right] O2 Sat by Pulse 98 99 Oximetry 05/08/20 05/08/20 05/08/20 12:45 12:49 12:50 Temperature Pulse Rate 96 H 95 H 95 H Respiratory Rate Blood Pressure 154/106 Blood Pressure [Right] O2 Sat by Pulse 98 98 Oximetry 05/08/20 05/08/20 05/08/20 12:54 12:55 12:59 Temperature Pulse Rate 91 H 94 H 93 H Respiratory Rate Blood Pressure 154/106 159/106 Blood Pressure [Right] O2 Sat by Pulse 100 Oximetry 05/08/20 05/08/20 05/08/20 13:00 13:05 13:10 Temperature Pulse Rate 93 H 95 H 94 H Respiratory Rate Blood Pressure Blood Pressure [Right] O2 Sat by Pulse 98 100 99 Oximetry 05/08/20 05/08/20 05/08/20 13:14 13:15 13:20 Temperature Pulse Rate 90 90 94 H Respiratory Rate Blood Pressure 151/98 Blood Pressure [Right] O2 Sat by Pulse 98 98 Oximetry 05/08/20 05/08/20 05/08/20 13:25 13:29 13:30 Temperature Pulse Rate 94 H 93 H 95 H Respiratory Rate Blood Pressure 157/99 Blood Pressure [Right] O2 Sat by Pulse 98 99 Oximetry 05/08/20 05/08/20 05/08/20 13:35 13:40 13:44 Temperature Pulse Rate 93 H 95 H 92 H Respiratory Rate Blood Pressure 151/96 Blood Pressure [Right] O2 Sat by Pulse 98 98 Oximetry 05/08/20 05/08/20 05/08/20 13:45 13:50 13:55 Temperature Pulse Rate 95 H 89 89 Respiratory Rate Blood Pressure Blood Pressure [Right] O2 Sat by Pulse 100 98 100 Oximetry 05/08/20 05/08/20 05/08/20 13:59 14:00 14:05 Temperature Pulse Rate 91 H 91 H 95 H Respiratory Rate Blood Pressure 154/97 Blood Pressure [Right] O2 Sat by Pulse 98 99 Oximetry 05/08/20 05/08/20 05/08/20 14:10 14:14 14:15 Temperature Pulse Rate 92 H 88 93 H Respiratory Rate Blood Pressure 154/99 Blood Pressure [Right] O2 Sat by Pulse 98 98 Oximetry 05/08/20 05/08/20 05/08/20 14:20 14:25 14:29 Temperature Pulse Rate 92 H 94 H 92 H Respiratory Rate Blood Pressure 159/104 Blood Pressure [Right] O2 Sat by Pulse 98 99 Oximetry 05/08/20 05/08/20 05/08/20 14:30 14:35 14:40 Temperature Pulse Rate 92 H 91 H 88 Respiratory Rate Blood Pressure Blood Pressure [Right] O2 Sat by Pulse 98 99 99 Oximetry 05/08/20 05/08/20 05/08/20 14:44 14:45 14:50 Temperature Pulse Rate 93 H 93 H 98 H Respiratory Rate Blood Pressure 165/110 Blood Pressure [Right] O2 Sat by Pulse 98 98 Oximetry 05/08/20 05/08/20 05/08/20 14:55 14:59 15:00 Temperature Pulse Rate 98 H 96 H 93 H Respiratory Rate Blood Pressure 162/108 Blood Pressure [Right] O2 Sat by Pulse 99 97 Oximetry 05/08/20 05/08/20 05/08/20 15:04 15:05 15:10 Temperature Pulse Rate 93 H 94 H 93 H Respiratory Rate Blood Pressure 157/109 Blood Pressure [Right] O2 Sat by Pulse 100 99 Oximetry 05/08/20 05/08/20 05/08/20 15:14 15:15 15:20 Temperature Pulse Rate 90 93 H 98 H Respiratory Rate Blood Pressure 165/113 Blood Pressure [Right] O2 Sat by Pulse 98 99 Oximetry 05/08/20 05/08/20 05/08/20 15:25 15:30 15:35 Temperature Pulse Rate 94 H 97 H 94 H Respiratory Rate Blood Pressure 165/106 Blood Pressure [Right] O2 Sat by Pulse 98 97 99 Oximetry 05/08/20 15:40 Temperature Pulse Rate 97 H Respiratory Rate Blood Pressure Blood Pressure [Right] O2 Sat by Pulse 99 Oximetry - Labs Labs: Abnormal Labs 05/06/20 05/06/20 05/06/20 14:50 14:50 16:55 RBC 3.57 L [place] % (Auto) 9.6 H [place] # (Auto) 1.0 H Seg Neutrophils % 71.7 H Sodium Carbon Dioxide Glucose AST 152 H ALT 363 H Lactate Dehydrogenase 294 H Total Protein Albumin Urine WBC (Auto) 12.0 H U Epithel Cells (Auto) 18.0 H 05/08/20 14:50 RBC [place] % (Auto) [place] # (Auto) Seg Neutrophils % Sodium 135 L Carbon Dioxide 21 L Glucose 115 H AST 127 H ALT 480 H Lactate Dehydrogenase Total Protein 6.0 L Albumin 3.0 L Urine WBC (Auto) U Epithel Cells (Auto) Laboratory Results - last 24 hr 05/08/20 05/08/20 05/08/20 14:50 14:50 14:50 WBC 10.7 RBC 3.69 Hgb 10.6 Hct 32.6 MCV 88 MCH 29 MCHC 33 RDW 14.6 Plt Count 247 Sodium 135 L Potassium 3.7 Chloride 105.6 Carbon Dioxide 21 L Anion Gap 12 BUN 15 Creatinine 1.1 Estimated GFR > 60 BUN/Creatinine Ratio 14 Glucose 115 H Uric Acid 5.1 Calcium 8.4 Total Bilirubin 0.50 AST 127 H ALT 480 H Alkaline Phosphatase 54 Total Protein 6.0 L Albumin 3.0 L Albumin/Globulin Ratio 1.0
[2020-05-08] MEDS ORDERED: WITCH HAZEL/ GLYCERIN PAD TP PRN (15:52)
[2020-05-08] MEDS ORDERED: LANOLIN/ZINC/DIMETHICONE (LANSINOH) 7 GM TP PRN (15:52)
[2020-05-08] MEDS ORDERED: BUPIVACAINE /DEX-WATER 0.75% (2 ML) AMPULE INFILTRATI ONE (15:52)
--- NOTE | 2020-05-08 15:58 | Event Note ---
Date: 05/08/20 Patient for , will re-evaluate in am. Cardiology input noted.
[2020-05-08] MEDS ORDERED: OXYTOCIN DRIP 30 UNITS/500 ML BAG IV SCH (16:00)
[2020-05-08] MEDS ORDERED: fentaNYL-BUPIV 2 MCG/ML-0.125% 200 MCG/100 ML BAG EPIDURAL SCH (16:00)
--- NOTE | 2020-05-08 16:05 | Procedure Note ---
OB Delivery Note - Delivery Date of Delivery: 05/08/20 Surgeon: DYLON VALLADARES Estimated blood loss: other (700ml) - Section Preop diagnosis: other (severe preeclampsia) Postop diagnosis: same section procedure: section, primary low transverse Disposition: PACU Complications: none - A at 1 minute: 7 at 5 minutes: 9 Infant Gender: Male (weight 720gms)
--- NOTE | 2020-05-08 16:08 | Operative Report ---
Operative Report Operative Report: Date of surgery: May 08, 2020 Preoperative diagnosis: at 26+4 weeks; chronic hypertension with superimposed preeclampsia; intrauterine growth restriction; congestive heart failure; chronic renal insufficiency Postoperative diagnosis: Same as above Procedure: Primary low transverse delivery Surgeon: Cheyenne Diaz M.D. Anesthesia: Regional Estimated blood loss: 700 mL IV fluids: 500 mL Urine output: 100 mL Findings: Liveborn male with Apgars of 7 and 9 weight 720 g in breech presentation Indications: 35-year-old -1-0-2 at 26+4 weeks who presents with worsening preeclampsia with evidence of elevated liver function tests and normal platelet count. The patient was admitted to the antepartum service for inpatient management however during her hospital course she had worsening of her blood pressures despite the use of antihypertensives. The patient has declined tubal ligation. Procedure: The patient was taken to the operating room and given regional anesthesia without complication. She was prepped and draped in a normal sterile fashion. A Pfannenstiel skin incision was made down to layer the fascia which was nicked in the midline extended laterally with the Bovie cautery. The superior aspect of the rectus fascia was grasped with [place] clamps x2 and the rectus muscles off sharply. This was done in inferior fashion as well. The rectus muscle midline and peritoneum entered bluntly. An Skyler retractor was then inserted. A bladder blade was placed. The vesicouterine peritoneum was then entered sharply with Metzenbaum scissors. A bladder flap was created digitally. A low transverse uterine inci josh was then made and extended digitally. There was clear fluid upon entry into the uterine cavity. The legs were delivered through the incision with fundal pressure. Nourse maneuver was performed in order to deliver the upper extremities. The head was delivered with fundal pressure. Delayed cord Clamping was applied. The cord was clamped and cut x2 and infant was passed off to pediatrics. The placenta was then manually extracted. The uterus was then exteriorized and cleared of clots and debris. The uterine incision was then closed in a running locked fashion with 0 Vicryl additional imbricating stitch was applied for 2 layer closure. The serosa was then reapproximated with 3-0 Vicryl. The posterior cul-de-sac was then copiously irrigated. The uterus was replaced back into the abdomen and pelvis were the gutters were then irrigated. The Skyler retractor was then removed. The peritoneum was then reapproximated with 3-0 Vicryl incorporating the rectus muscle. The fascia was then closed with 0 Vicryl in a running fashion. The skin was then reapproximated with 3-0 Monocryl on a Dwight needle subcuticular fashion. Steri-Strips to place across the incision and a Crede procedures performed at the end of the surgery. A pressure dressing was applied to the incision. The surgery productive of a liveborn male with Apgars of 7 and 9 weight 720 g. The patient was taken to the recovery room in stable condition. All sponge laps and needle counts correct x2.
[2020-05-08] MEDS ORDERED: MIDAZOLAM 5 MG/5 ML INJ MDV IV ONE (16:30)
[2020-05-08] MEDS ORDERED: ONDANSETRON 4 MG/2 ML INJ ONE (16:32)
[2020-05-08] MEDS ORDERED: OXYTOCIN 10 UNIT/1 ML INJ ONE (16:35)
[2020-05-08] MEDS ORDERED: KETOROLAC 30 MG/1 ML INJ ONE (16:37)
[2020-05-08] MEDS ORDERED: dexAMETHasone 20 MG/5 ML VIAL ONE (16:58)
[2020-05-08] MEDS ORDERED: BUPIVACAINE/PF (0.5%) 5 MG/1 ML 30 ML VIAL INFILTRATI ONE (16:58)
[2020-05-08] MEDS ORDERED: HYDROmorphone 1 MG/1 ML INJ IV PRN (17:17)
--- NOTE | 2020-05-08 17:17 | Progress Note ---
Spinal Anesthesia Block - Spinal Anesthesia Block Start Time: 15:52 Stop Time: 15:59 Performed by:: TARIQ SANCHEZ Procedure: Patient IDed, H&P reviewed, all questions and concerns were answered, and consent was signed. Timeout was performed at bedside. Patient in sitting position. Sterile prep and drape was performed. [3] ml of 1% lidocaine skin wheal at L[3]- L [4]. Needle introducer advanced. 25 gauge spinal needle advanced. Clear, free flowing CSF. negative blood, negative paresthesia. Spinal dose given. All needles removed. Patient tolerated procedure.
--- NOTE | 2020-05-08 17:59 | Progress Note ---
Subjective Date of service: 05/08/20 Principal diagnosis: UG Bilateral TAP Block Interval history: Patient consented for TAP block for post surgical pain management. Patient identified, monitors placed, and time out performed. TAP identified bilaterally via ultrasound. Skin prepped bilaterally with [chlorhexidine] and [22g stimuplex] needle advanced to the TAP. [Marcaine 0.33% ] 30ml injected under ultrasound guidance on the [left] side. [Marcaine 0.33%] 30ml injected under ultrasound guidance on the [right] side. Objective - Constitutional Vitals: Vital Signs - 12hr 05/08/20 05/08/20 05/08/20 06:07 06:37 07:07 Temperature Pulse Rate 90 87 88 Respiratory Rate Blood Pressure 159/116 158/109 156/111 Blood Pressure [Right] O2 Sat by Pulse Oximetry 05/08/20 05/08/20 05/08/20 07:19 07:21 07:31 Temperature 97.5 F L Pulse Rate 92 H 92 H 92 H Respiratory 20 Rate Blood Pressure 151/111 151/111 Blood Pressure 151/111 [Right] O2 Sat by Pulse Oximetry 05/08/20 05/08/20 05/08/20 07:37 09:07 09:37 Temperature Pulse Rate 89 93 H 93 H Respiratory Rate Blood Pressure 141/101 160/95 160/99 Blood Pressure [Right] O2 Sat by Pulse Oximetry 05/08/20 05/08/20 05/08/20 09:55 10:07 10:37 Temperature Pulse Rate 93 H 95 H 93 H Respiratory Rate Blood Pressure 160/99 161/103 155/100 Blood Pressure [Right] O2 Sat by Pulse Oximetry 05/08/20 05/08/20 05/08/20 11:08 11:37 11:43 Temperature Pulse Rate 94 H 104 H 100 H Respiratory Rate Blood Pressure 161/108 170/104 166/105 Blood Pressure [Right] O2 Sat by Pulse Oximetry 05/08/20 05/08/20 05/08/20 11:44 11:49 11:50 Temperature Pulse Rate 39 L Respiratory Rate Blood Pressure Blood Pressure [Right] O2 Sat by Pulse 68 L 72 L 94 Oximetry 05/08/20 05/08/20 05/08/20 11:54 11:55 11:59 Temperature Pulse Rate 74 39 L Respiratory Rate Blood Pressure Blood Pressure [Right] O2 Sat by Pulse 86 90 93 Oximetry 05/08/20 05/08/20 05/08/20 12:05 12:07 12:10 Temperature Pulse Rate 88 98 H 58 L Respiratory Rate Blood Pressure 178/130 Blood Pressure [Right] O2 Sat by Pulse 94 0 L Oximetry 05/08/20 05/08/20 05/08/20 12:15 12:16 12:18 Temperature Pulse Rate 57 L 98 H Respiratory Rate Blood Pressure 170/117 Blood Pressure [Right] O2 Sat by Pulse 88 69 L Oximetry 05/08/20 05/08/20 05/08/20 12:20 12:21 12:22 Temperature Pulse Rate 97 H 113 H 78 Respiratory Rate Blood Pressure 165/118 165/118 Blood Pressure [Right] O2 Sat by Pulse 70 L 69 L Oximetry 05/08/20 05/08/20 05/08/20 12:25 12:28 12:30 Temperature Pulse Rate 59 L 96 H 101 H Respiratory Rate Blood Pressure 169/115 Blood Pressure [Right] O2 Sat by Pulse 72 L 99 Oximetry 05/08/20 05/08/20 05/08/20 12:34 12:35 12:40 Temperature Pulse Rate 97 H 98 H 96 H Respiratory Rate Blood Pressure 168/114 164/110 Blood Pressure [Right] O2 Sat by Pulse 98 99 Oximetry 05/08/20 05/08/20 05/08/20 12:45 12:49 12:50 Temperature Pulse Rate 96 H 95 H 95 H Respiratory Rate Blood Pressure 154/106 Blood Pressure [Right] O2 Sat by Pulse 98 98 Oximetry 05/08/20 05/08/20 05/08/20 12:54 12:55 12:59 Temperature Pulse Rate 91 H 94 H 93 H Respiratory Rate Blood Pressure 154/106 159/106 Blood Pressure [Right] O2 Sat by Pulse 100 Oximetry 05/08/20 05/08/20 05/08/20 13:00 13:05 13:10 Temperature Pulse Rate 93 H 95 H 94 H Respiratory Rate Blood Pressure Blood Pressure [Right] O2 Sat by Pulse 98 100 99 Oximetry 05/08/20 05/08/20 05/08/20 13:14 13:15 13:20 Temperature Pulse Rate 90 90 94 H Respiratory Rate Blood Pressure 151/98 Blood Pressure [Right] O2 Sat by Pulse 98 98 Oximetry 05/08/20 05/08/20 05/08/20 13:25 13:29 13:30 Temperature Pulse Rate 94 H 93 H 95 H Respiratory Rate Blood Pressure 157/99 Blood Pressure [Right] O2 Sat by Pulse 98 99 Oximetry 05/08/20 05/08/20 05/08/20 13:35 13:40 13:44 Temperature Pulse Rate 93 H 95 H 92 H Respiratory Rate Blood Pressure 151/96 Blood Pressure [Right] O2 Sat by Pulse 98 98 Oximetry 05/08/20 05/08/20 05/08/20 13:45 13:50 13:55 Temperature Pulse Rate 95 H 89 89 Respiratory Rate Blood Pressure Blood Pressure [Right] O2 Sat by Pulse 100 98 100 Oximetry 05/08/20 05/08/20 05/08/20 13:59 14:00 14:05 Temperature Pulse Rate 91 H 91 H 95 H Respiratory Rate Blood Pressure 154/97 Blood Pressure [Right] O2 Sat by Pulse 98 99 Oximetry 05/08/20 05/08/20 05/08/20 14:10 14:14 14:15 Temperature Pulse Rate 92 H 88 93 H Respiratory Rate Blood Pressure 154/99 Blood Pressure [Right] O2 Sat by Pulse 98 98 Oximetry 05/08/20 05/08/20 05/08/20 14:20 14:25 14:29 Temperature Pulse Rate 92 H 94 H 92 H Respiratory Rate Blood Pressure 159/104 Blood Pressure [Right] O2 Sat by Pulse 98 99 Oximetry 05/08/20 05/08/20 05/08/20 14:30 14:35 14:40 Temperature Pulse Rate 92 H 91 H 88 Respiratory Rate Blood Pressure Blood Pressure [Right] O2 Sat by Pulse 98 99 99 Oximetry 05/08/20 05/08/20 05/08/20 14:44 14:45 14:50 Temperature Pulse Rate 93 H 93 H 98 H Respiratory Rate Blood Pressure 165/110 Blood Pressure [Right] O2 Sat by Pulse 98 98 Oximetry 05/08/20 05/08/20 05/08/20 14:55 14:59 15:00 Temperature Pulse Rate 98 H 96 H 93 H Respiratory Rate Blood Pressure 162/108 Blood Pressure [Right] O2 Sat by Pulse 99 97 Oximetry 05/08/20 05/08/20 05/08/20 15:04 15:05 15:10 Temperature Pulse Rate 93 H 94 H 93 H Respiratory Rate Blood Pressure 157/109 Blood Pressure [Right] O2 Sat by Pulse 100 99 Oximetry 05/08/20 05/08/20 05/08/20 15:14 15:15 15:20 Temperature Pulse Rate 90 93 H 98 H Respiratory Rate Blood Pressure 165/113 Blood Pressure [Right] O2 Sat by Pulse 98 99 Oximetry 05/08/20 05/08/20 05/08/20 15:25 15:30 15:35 Temperature Pulse Rate 94 H 97 H 94 H Respiratory Rate Blood Pressure 165/106 Blood Pressure [Right] O2 Sat by Pulse 98 97 99 Oximetry 05/08/20 15:40 Temperature Pulse Rate 97 H Respiratory Rate Blood Pressure Blood Pressure [Right] O2 Sat by Pulse 99 Oximetry - Labs CBC & Chem 7: 05/08/20 14:50 05/08/20 14:50 Labs: Abnormal lab results 05/08/20 Range/Units 14:50 Sodium 135 L (137-145) mmol/L Carbon Dioxide 21 L (22-30) mmol/L Glucose 115 H (65-100) mg/dL AST 127 H (5-40) units/L ALT 480 H (7-56) units/L Total Protein 6.0 L (6.3-8.2) g/dL Albumin 3.0 L (3.9-5) g/dL
--- NOTE | 2020-05-08 17:59 | Post Anesthesia Evaluation ---
- Post Anesthesia Evaluation Patient Participated: Yes Airway Patent: Yes Stable Respiratory Function: Yes Nausea/Vomiting: No Temp > 96.8F: Yes Pain Manageable: Yes Adequeate Hydration: Yes Anesthesia Complications: No Block Receding Appropriately: Yes Patient on Ventilator: No
[2020-05-08] MEDS ORDERED: D5W/LACTATED RINGERS 1,000 ML IV SCH (18:00)
[2020-05-08] MEDS: oxyCODONE /ACETAMINOPHEN 5-325MG TAB PO PRN ×2 (18:18→23:24)
[2020-05-08] MEDS: MORPHINE 4 MG/1 ML INJ IV PRN (20:59)
--- NOTE | 2020-05-08 23:47 | Consultation ---
CARDIOLOGY CONSULTATION REFERRING PHYSICIAN: Dr. Cheyenne Emery HISTORY OF PRESENT ILLNESS: The patient is a very pleasant 35-year-old female who is 26 weeks , history of cardiomyopathy, hypertension, admitted on 05/06/2020 for inpatient management due to multiple comorbidities. She is seen on the OB floor. She is feeling great and has no complaints. No chest pain, shortness of breath, syncope or presyncope, was seen in our office by Dr. Jay on 05/02/2020. The patient is on carvedilol 25 twice a day, history of EF of 40-45%, grade 2 diastolic dysfunction, moderate MR. This echo was performed on 02/22/2020. At home, she is on carvedilol 25 twice a day and has tolerated this, seeing high speed warper tender as well, also seeing Nephrology for history of CKD. Again, she is not having any symptoms at this point. PAST MEDICAL HISTORY: As aforementioned. ALLERGIES: No known drug, food, or environmental allergies. MEDICATIONS: Inpatient and outpatient medications reviewed. REVIEW OF SYSTEMS: As per HPI. SOCIAL HISTORY: Nonsmoker, nondrinker. PHYSICAL EXAMINATION: VITAL SIGNS: Blood pressure is 150/100, pulse rate 93. She is afebrile. O2 sat is 98% on room air. HEENT: Sclerae are anicteric. PERRLA. NECK: Supple, no masses, no JVD. CHEST: Decreased breath sounds, bilateral bases. Overall, moderate movement. CARDIOVASCULAR: Regular rhythm, S1, S2. ABDOMEN: Gravid. EXTREMITIES: No cyanosis, clubbing, edema. Good peripheral pulses. SKIN: Warm, dry and intact. No rashes. LABORATORY DATA: CBC unremarkable. AST 152, ALT 363, creatinine 1.2. No EKG is available. ASSESSMENT AND PLAN: In summary, the patient is a pleasant 35-year-old female with a history of congestive cardiomyopathy, hypertension, chronic kidney disease, is admitted for inpatient treatment, she is 26 weeks . We will add nifedipine if okay with OB for better blood pressure control. No need to repeat another echocardiogram. She is clinically euvolemic. Check EKG. I will be happy to follow along with you. JOB# [id number] SBM/NTS
[2020-05-09] MEDS: oxyCODONE /ACETAMINOPHEN 5-325MG TAB PO PRN ×3 (03:56→19:23)
[2020-05-09] MEDS: MORPHINE 4 MG/1 ML INJ IV PRN ×2 (08:15→16:19)
--- NOTE | 2020-05-09 08:43 | Progress Note ---
Assessment and Plan A: POD#1 s/p primary section at 26 wks Chronic hypertension with superimposed preeclampsia on magnesium sulfate for seizure prophylaxis CHF Chronic renal insufficiency Obesity P: Continue routine postop care Avoid nephrotoxic agents including NSAIDs Closely monitor clinical status Subjective - Subjective Date of service: 05/09/20 Principal diagnosis: s/p primary section, chronic htn with superimposed preeclampsia; Interval history: Pt feeling well this morning, apart from pain at her incision. Patient reports: appetite normal, pain well controlled, no voiding normally (dowling), no flatus, no bowel movement, no ambulating normally (SCDs ) : in NICU Objective - Vital Signs Latest vital signs: Vital Signs Temp Pulse Resp BP BP Pulse Ox 05/09/20 08:39 84 96 05/09/20 08:34 73 97 05/09/20 08:29 79 97 05/09/20 08:24 81 99 05/09/20 08:23 80 147/102 05/09/20 08:19 83 100 05/09/20 08:14 77 100 05/09/20 08:09 75 99 05/09/20 08:04 75 98 05/09/20 08:02 81 150/100 05/09/20 08:01 97.7 F 78 18 146/99 99 05/09/20 07:59 79 146/99 99 05/09/20 07:53 181 H 81 L 05/09/20 07:52 75 141/95 05/09/20 07:47 171 H 82 L 05/09/20 07:41 79 L 05/09/20 07:37 161 H 85 05/09/20 07:36 113 H 83 L 05/09/20 07:32 76 97 05/09/20 07:27 78 95 05/09/20 07:23 76 94 05/09/20 07:22 76 139/93 97 05/09/20 07:17 77 98 05/09/20 07:12 76 96 05/09/20 07:07 77 98 05/09/20 07:02 82 97 05/09/20 06:57 80 97 05/09/20 06:52 76 127/89 93 05/09/20 06:47 74 95 05/09/20 06:42 75 96 05/09/20 06:37 75 96 05/09/20 06:32 75 97 12/14/20 06:27 77 96 12/14/20 06:22 75 126/89 96 12/14/20 06:17 75 96 12/14/20 06:12 73 96 12/14/20 06:07 75 96 12/14/20 06:02 72 97 12/14/20 05:57 77 97 12/14/20 05:52 70 130/82 97 12/14/20 05:47 76 97 12/14/20 05:42 76 96 12/14/20 05:37 71 98 12/14/20 05:32 74 97 12/14/20 05:27 78 98 12/14/20 05:22 73 137/93 98 12/14/20 05:17 79 98 12/14/20 05:12 75 98 12/14/20 05:07 74 97 12/14/20 05:02 75 97 12/14/20 04:57 74 97 12/14/20 04:52 75 134/92 98 12/14/20 04:47 77 98 12/14/20 04:42 76 97 12/14/20 04:37 75 98 12/14/20 04:32 78 97 12/14/20 04:27 73 97 12/14/20 04:22 77 144/98 97 12/14/20 04:17 76 97 12/14/20 04:12 77 98 12/14/20 04:07 76 98 12/14/20 04:02 77 99 12/14/20 03:57 80 99 12/14/20 03:52 76 145/94 93 12/14/20 03:47 78 96 12/14/20 03:42 77 97 12/14/20 03:37 77 96 12/14/20 03:32 74 96 12/14/20 03:27 82 97 12/14/20 03:22 77 139/96 94 12/14/20 03:17 78 96 12/14/20 03:12 74 97 12/14/20 03:07 77 97 12/14/20 03:02 75 97 12/14/20 02:57 76 96 12/14/20 02:52 77 141/94 94 12/14/20 02:47 78 96 12/14/20 02:42 79 96 12/14/20 02:37 77 98 12/14/20 02:32 78 96 12/14/20 02:27 76 96 12/14/20 02:22 74 133/88 94 12/14/20 02:17 72 96 1214/20 02:12 76 96 1214/20 02:07 72 96 1214/20 02:02 83 96 1214/20 01:57 75 98 12/14/20 01:52 74 125/85 98 1214/20 01:47 75 98 1214/20 01:42 75 97 14/20 01:37 76 98 1214/20 01:32 71 98 1214/20 01:27 79 98 1214/20 01:22 75 125/85 99 14/20 01:17 75 98 14/20 01:12 82 98 1420 01:07 76 98 1420 01:02 79 98 1420 00:57 77 95 1214/20 00:52 81 128/86 94 1214/20 00:47 74 97 14/20 00:42 80 96 1214/20 00:38 79 94 1214/20 00:37 77 96 1214/20 00:32 78 95 1214/20 00:27 78 96 1214/20 00:22 81 134/93 94 1214/20 00:17 80 94 1214/20 00:12 78 96 1214/20 00:07 81 96 1214/20 00:02 85 97 12/13/20 23:57 84 100 12/13/20 23:52 83 98 12/13/20 23:51 85 152/105 12/13/20 23:47 84 99 12/13/20 23:42 87 99 12/13/20 23:37 85 99 12/13/20 23:32 86 98 12/13/20 23:27 86 99 12/13/20 23:22 85 98 12/13/20 23:17 86 159/108 99 12/13/20 23:12 86 99 12/13/20 23:07 83 98 12/13/20 23:06 88 158/106 12/13/20 23:03 86 185/127 12/13/20 23:01 85 99 12/13/20 22:56 84 98 12/13/20 22:51 85 97 12/13/20 22:47 82 156/99 12/13/20 22:46 84 97 12/13/20 22:41 84 98 12/13/20 22:36 86 97 12/13/20 22:33 87 155/104 12/20 22:31 84 98 12/13/20 22:26 85 99 12//20 22:21 82 98 1213/20 22:18 86 138/86 12/20 22:16 85 99 1213/20 22:11 91 H 98 12/13/20 22:06 88 98 1213/20 22:02 88 161/110 12/20 22:01 88 99 12//20 21:56 95 H 167/115 99 05/08/20 21:51 82 99 12/20 21:47 86 167/115 12/20 21:46 82 98 1213/20 21:41 86 98 12/20 21:36 84 99 05/08/20 21:32 85 158/104 05/08/20 21:31 83 98 12/13/20 21:26 81 98 12//20 21:21 86 98 12/13/20 21:17 84 156/111 12/20 21:16 78 98 12/13/20 21:12 85 159/113 12/20 21:11 84 99 12/13/20 21:06 84 98 12/13/20 21:02 82 159/113 12/20 21:01 85 99 1213/20 20:56 85 99 05/08/20 20:51 84 99 1213/20 20:47 87 160/113 12/20 20:46 84 99 12/13/20 20:41 87 96 12/13/20 20:36 78 97 12/13/20 20:32 83 154/110 1213/20 20:31 79 96 12/13/20 20:26 80 97 12/13/20 20:21 81 96 12/13/20 20:17 81 151/108 12/13/20 20:16 80 96 12/13/20 20:11 81 97 12/13/20 20:06 78 96 1213/20 20:02 81 157/109 12/13/20 20:01 77 96 12/13/20 19:56 79 96 12/13/20 19:51 79 97 12/13/20 19:47 78 151/105 12/13/20 19:46 80 96 12/13/20 19:41 78 97 12/13/20 19:36 77 97 12/13/20 19:32 74 150/102 12/13/20 19:31 80 99 12/13/20 19:26 80 97 12/13/20 19:21 81 99 1213/20 19:18 97.9 F 82 20 149/102 99 1213/20 19:17 78 149/102 12/20 19:16 78 97 1213/20 19:11 77 98 1213/20 19:06 75 98 12/13/20 19:02 74 143/95 1213/20 19:01 76 99 1213/20 18:56 79 99 12/20 18:51 77 99 12/20 18:46 74 99 12/20 18:44 73 133/83 12/20 18:42 97.8 F 76 14 133/83 99 05/08/20 18:30 97.6 F 77 18 143/96 98 12/20 18:15 97.6 F 77 16 144/93 99 05/08/20 18:00 78 16 135/91 99 1213/20 17:45 97.6 F 76 14 135/90 99 05/08/20 17:30 97.6 F 76 18 132/87 99 12/13/20 17:28 97.5 F L 78 16 135/84 99 12/13/20 17:23 97.5 F L 78 16 137/83 98 12/13/20 17:18 97.5 F L 78 16 136/82 98 12/13/20 17:13 97.5 F L 79 14 128/82 96 1213/20 15:40 97 H 99 12/13/20 15:35 94 H 99 12/13/20 15:30 97 H 165/106 97 12/13/20 15:25 94 H 98 12/13/20 15:20 98 H 99 12/13/20 15:15 93 H 98 12/13/20 15:14 90 165/113 12/13/20 15:10 93 H 99 12/13/20 15:05 94 H 100 12/13/20 15:04 93 H 157/109 12/13/20 15:00 93 H 97 12/13/20 14:59 96 H 162/108 12/13/20 14:55 98 H 99 12/13/20 14:50 98 H 98 12/13/20 14:45 93 H 98 12/13/20 14:44 93 H 165/110 12/13/20 14:40 88 99 12/13/20 14:35 91 H 99 12/13/20 14:30 92 H 98 12/13/20 14:29 92 H 159/104 12/13/20 14:25 94 H 99 12/13/20 14:20 92 H 98 12/13/20 14:15 93 H 98 12/13/20 14:14 88 154/99 12/13/20 14:10 92 H 98 12/13/20 14:05 95 H 99 12/13/20 14:00 91 H 98 12/13/20 13:59 91 H 154/97 12/13/20 13:55 89 100 12/13/20 13:50 89 98 12/13/20 13:45 95 H 100 12/13/20 13:44 92 H 151/96 12/13/20 13:40 95 H 98 12/13/20 13:35 93 H 98 12/13/20 13:30 95 H 99 12/13/20 13:29 93 H 157/99 12/13/20 13:25 94 H 98 12/13/20 13:20 94 H 98 12/13/20 13:15 90 98 12/13/20 13:14 90 151/98 12/13/20 13:10 94 H 99 12/13/20 13:05 95 H 100 12/13/20 13:00 93 H 98 12/13/20 12:59 93 H 159/106 12/13/20 12:55 94 H 100 12/13/20 12:54 91 H 154/106 12/13/20 12:50 95 H 98 12/13/20 12:49 95 H 154/106 12/13/20 12:45 96 H 98 12/13/20 12:40 96 H 164/110 99 12/13/20 12:35 98 H 98 12/13/20 12:34 97 H 168/114 05/08/20 12:30 101 H 99 05/08/20 12:28 96 H 169/115 05/08/20 12:25 59 L 72 L 05/08/20 12:22 78 69 L 05/08/20 12:21 113 H 165/118 05/08/20 12:20 97 H 165/118 70 L 05/08/20 12:18 98 H 170/117 05/08/20 12:16 69 L 05/08/20 12:15 57 L 88 05/08/20 12:10 58 L 0 L 05/08/20 12:07 98 H 178/130 05/08/20 12:05 88 94 05/08/20 11:59 93 05/08/20 11:55 39 L 90 05/08/20 11:54 74 86 05/08/20 11:50 39 L 94 05/08/20 11:49 72 L 05/08/20 11:44 68 L 05/08/20 11:43 100 H 166/105 05/08/20 11:37 104 H 170/104 05/08/20 11:08 94 H 161/108 05/08/20 10:37 93 H 155/100 05/08/20 10:07 95 H 161/103 05/08/20 09:55 93 H 160/99 05/08/20 09:37 93 H 160/99 05/08/20 09:07 93 H 160/95 Intake and Output 05/08/20 05/09/20 05/09/20 22:59 06:59 14:59 Intake Total 850.833 Output Total 700 500 Balance 150.833 -500 Intake: IV 850.833 MAGNESIUM SULFATE 40GM/ 150.833 1000ML 40 gm In 1,000 ml @ 1 GM/HR 25 mls/hr IV DIRECT INDY Rx#:[id number] Output: Urine 700 500 Indwelling Catheter 450 500 Uretheral (Dowling) 150 Other: Total, Output Amount 100 100 - Exam Breasts: Present: deferred Abdomen: Present: soft (obese, gravid ) Uterus: Present: normal (gravid ) Extremities: Present: edema (trace ) Incision: Present: dressed - Labs Labs: Abnormal lab results 05/08/20 05/09/20 Range/Units 14:50 00:40 Sodium 135 L (137-145) mmol/L Carbon Dioxide 21 L (22-30) mmol/L Glucose 115 H (65-100) mg/dL Magnesium 4.00 H (1.7-2.3) mg/dL AST 127 H (5-40) units/L ALT 480 H (7-56) units/L Total Protein 6.0 L (6.3-8.2) g/dL Albumin 3.0 L (3.9-5) g/dL
[2020-05-09 09:28] LABS: Hemoglobin 9.5 gm/dl (10.1-14.3); Mean Corpuscular HGB Conc 33 % (30-34); Mean Corpuscular Volume 88 fl (79-97); Platelet Count 217 K/mm3 (140-440); Red Blood Count 3.29 M/mm3 (3.65-5.03); Red Cell Distribution Width 14.9 % (13.2-15.2)
[2020-05-09 09:52] LABS: Alanine Aminotransferase 301 units/L (7-56); Albumin 2.4 g/dL (3.9-5); BUN/Creatinine Ratio 14; Blood Urea Nitrogen 13 mg/dL (7-17); Calcium 7.7 mg/dL (8.4-10.2); Hemolysis Index 4
[2020-05-09] MEDS: PRENATAL VIT27-FE FUMARATE-FOLIC ACID VIT TAB PO SCH (10:18)
[2020-05-09] MEDS: carvediloL 25 MG TAB PO SCH ×2 (11:39→22:44)
--- NOTE | 2020-05-09 13:33 | Progress Note ---
Assessment and Plan tte done 01/2020 showed EF 40-45%, grade II diastolic dysfunction, mod MR. Currently stable cardiac status. Pt denies any cardiac complaints. Cont present anti-hypertensive regimen if deemed safe to continue per [facility] [employer] team - breast feeding status should be taken into consideration. Nothing further to add from cardiac perspective at this time. Will sign off. Recommend pt follow up in our office within 2 weeks of discharge ([phone]). The patient has been seen in conjunction with Dr. Monae Cuevas who agrees with the assessment and plan of care. - Patient Problems (1) S/P Current Visit: Yes Status: Acute (2) Cardiomyopathy Current Visit: Yes Status: Chronic (3) Hypertension Current Visit: Yes Status: Chronic Qualifiers: Hypertension type: essential hypertension Qualified Code(s): I10 - Essential (primary) hypertension Subjective Date of service: 05/09/20 Principal diagnosis: UG Bilateral TAP Block Interval history: pt resting comfortably in bed, no current cardiac complaints. s/p caesarian delivery last night, pt states her baby boy is in stable condition. Objective Last Vital Signs Temp 97.7 F 05/09/20 08:01 Pulse 82 05/09/20 13:29 Resp 18 05/09/20 08:01 BP 139/97 05/09/20 13:22 Pulse Ox 94 05/09/20 13:29 - Physical Examination General: No Apparent Distress HEENT: Positive: PERRL, Normocephaly, Mucus Membranes Moist Cardiac: Positive: Reg Rate and Rhythm, S1/S2 Lungs: Positive: Decreased Breath Sounds Neuro: Positive: Grossly Intact Skin: Negative: Rash Musculoskeletal: No Pain - Labs and Meds Cardiac Enzymes 05/08/20 05/09/20 Range/Units 14:50 Unknown AST 127 H 68 H (5-40) units/L CBC 05/08/20 05/09/20 Range/Units 14:50 Unknown WBC 10.7 12.7 H (4.5-11.0) K/mm3 RBC 3.69 3.29 L (3.65-5.03) M/mm3 Hgb 10.6 9.5 L (10.1-14.3) gm/dl Hct 32.6 29.0 L (30.3-42.9) % Plt Count 247 217 (140-440) K/mm3 Comprehensive Metabolic Panel 05/08/20 05/09/20 Range/Units 14:50 Unknown Sodium 135 L 128 L D (137-145) mmol/L Potassium 3.7 4.2 (3.6-5.0) mmol/L Chloride 105.6 97.8 L (98-107) mmol/L Carbon Dioxide 21 L 20 L (22-30) mmol/L BUN 15 13 (7-17) mg/dL Creatinine 1.1 0.9 (0.6-1.2) mg/dL Glucose 115 H 90 (65-100) mg/dL Calcium 8.4 7.7 L (8.4-10.2) mg/dL AST 127 H 68 H (5-40) units/L ALT 480 H 301 H (7-56) units/L Alkaline Phosphatase 54 45 (35-129) units/L Total Protein 6.0 L 4.8 L (6.3-8.2) g/dL Albumin 3.0 L 2.4 L (3.9-5) g/dL
--- NOTE | 2020-05-09 18:17 | Progress Note ---
<REIWaldemarGORDYKatie - Last Filed: 05/09/20 18:20> Assessment and Plan - Patient Problems (1) S/P Current Visit: Yes Status: Acute Plan to address problem: S/p 05/08 Care per primary (2) Hypertension Current Visit: Yes Status: Chronic Qualifiers: Hypertension type: essential hypertension Qualified Code(s): I10 - Essential (primary) hypertension Plan to address problem: Cardiology consulted 01/2020 TTE showed EF 40 to 45% with grade 2 diastolic dysfunction and moderate MR Continue current antihypertensive regimen Blood pressure monitoring per protocol Will need to discharge with antihypertensives f/u with cardiology within 1 to 2 weeks of discharge f/u PCP within 1 to 2 weeks of discharge History Interval history: 35 YO Female at 23 weeks gestation with CHF, HTN. She is s/p csection 05/08 and at the time of my examination patient is still receiving magnesium infusion however the RN informs me that she is getting ready to move up to from a bed delivery. Patient does not have any complaints. Hospitalist Physical - Constitutional Vitals: Temp Pulse Resp BP Pulse Ox 97.3 F L 79 18 125/91 95 05/09/20 16:20 05/09/20 18:14 05/09/20 16:20 05/09/20 17:52 05/09/20 18:14 General appearance: Present: no acute distress, obese - EENT Eyes: Present: PERRL, EOM intact ENT: hearing intact, clear oral mucosa, dentition normal - Neck Neck: Present: supple, normal ROM - Respiratory Respiratory effort: normal Respiratory: bilateral: CTA - Cardiovascular Rhythm: regular Heart Sounds: Present: S1 & S2. Absent: systolic murmur, diastolic murmur - Extremities Extremities: no ischemia, pulses intact, pulses symmetrical, normal temperature, normal color, Full ROM Extremity abnormal: edema - Peripheral Assessment Bilateral Foot Edema Type: Non-pitting Capillary Refill: < 3 seconds Skin Temperature: Warm Peripheral Pulses: within normal limits - Abdominal General gastrointestinal: soft, non-tender, non-distended - Integumentary Integumentary: Present: clear, warm, dry - Psychiatric Psychiatric: appropriate mood/affect, cooperative - Neurologic Neurologic: CNII-XII intact, no focal deficits, moves all extremities - Allied Health Allied health notes reviewed: nursing Results - Labs CBC & Chem 7: 05/09/20 Unknown 05/09/20 Unknown Labs: Laboratory Last Values WBC 12.7 K/mm3 (4.5-11.0) H 05/09/20 Unknown RBC 3.29 M/mm3 (3.65-5.03) L 05/09/20 Unknown Hgb 9.5 gm/dl (10.1-14.3) L 05/09/20 Unknown Hct 29.0 % (30.3-42.9) L 05/09/20 Unknown MCV 88 fl (79-97) 05/09/20 Unknown MCH 29 pg (28-32) 05/09/20 Unknown MCHC 33 % (30-34) 05/09/20 Unknown RDW 14.9 % (13.2-15.2) 05/09/20 Unknown Plt Count 217 K/mm3 (140-440) 05/09/20 Unknown Lymph % (Auto) 18.3 % (13.4-35.0) 05/06/20 14:50 [place] % (Auto) 9.6 % (0.0-7.3) H 05/06/20 14:50 Eos % (Auto) 0.3 % (0.0-4.3) 05/06/20 14:50 Baso % (Auto) 0.1 % (0.0-1.8) 05/06/20 14:50 Lymph # (Auto) 2.0 K/mm3 (1.2-5.4) 05/06/20 14:50 [place] # (Auto) 1.0 K/mm3 (0.0-0.8) H 05/06/20 14:50 Eos # (Auto) 0.0 K/mm3 (0.0-0.4) 05/06/20 14:50 Baso # (Auto) 0.0 K/mm3 (0.0-0.1) 05/06/20 14:50 Seg Neutrophils % 71.7 % (40.0-70.0) H 05/06/20 14:50 Seg Neutrophils # 7.7 K/mm3 (1.8-7.7) 05/06/20 14:50 Sodium 128 mmol/L (137-145) L D 05/09/20 Unknown Potassium 4.2 mmol/L (3.6-5.0) 05/09/20 Unknown Chloride 97.8 mmol/L (98-107) L 05/09/20 Unknown Carbon Dioxide 20 mmol/L (22-30) L 05/09/20 Unknown Anion Gap 14 mmol/L 05/09/20 Unknown BUN 13 mg/dL (7-17) 05/09/20 Unknown Creatinine 0.9 mg/dL (0.6-1.2) 05/09/20 Unknown Estimated GFR > 60 ml/min 05/09/20 Unknown BUN/Creatinine Ratio 14 % 05/09/20 Unknown Glucose 90 mg/dL (65-100) 05/09/20 Unknown Uric Acid 5.1 mg/dL (3.5-7.6) 05/08/20 14:50 Calcium 7.7 mg/dL (8.4-10.2) L 05/09/20 Unknown Magnesium 15.30 mg/dL (1.7-2.3) H 05/09/20 Unknown Total Bilirubin 0.50 mg/dL (0.1-1.2) 05/09/20 Unknown AST 68 units/L (5-40) H 05/09/20 Unknown ALT 301 units/L (7-56) H 05/09/20 Unknown Alkaline Phosphatase 45 units/L (35-129) 05/09/20 Unknown Lactate Dehydrogenase 294 units/L (91-180) H 05/06/20 14:50 Total Protein 4.8 g/dL (6.3-8.2) L 05/09/20 Unknown Albumin 2.4 g/dL (3.9-5) L 05/09/20 Unknown Albumin/Globulin Ratio 1.0 % 05/09/20 Unknown Urine Color Yellow (Yellow) 05/06/20 16:55 Urine Turbidity Slightly-cloudy (Clear) 05/06/20 16:55 Urine pH 6.0 (5.0-7.0) 05/06/20 16:55 Ur Specific [place] 1.012 (1.003-1.030) 05/06/20 16:55 Urine Protein >500 mg/dL (Negative) 05/06/20 16:55 Urine Glucose (UA) Neg mg/dL (Negative) 05/06/20 16:55 Urine Ketones Neg mg/dL (Negative) 05/06/20 16:55 Urine Blood Sm (Negative) 05/06/20 16:55 Urine Nitrite Neg (Negative) 05/06/20 16:55 Urine Bilirubin Neg (Negative) 05/06/20 16:55 Urine Urobilinogen < 2.0 mg/dL (<2.0) 05/06/20 16:55 Ur Leukocyte Esterase Mod (Negative) 05/06/20 16:55 Urine WBC (Auto) 12.0 /HPF (0.0-6.0) H 05/06/20 16:55 Urine RBC (Auto) 14.0 /HPF (0.0-6.0) 05/06/20 16:55 U Epithel Cells (Auto) 18.0 /HPF (0-13.0) H 05/06/20 16:55 Urine Yeast (Budding) 1+ /HPF 05/06/20 16:55 Blood Type A POSITIVE 05/06/20 14:50 Antibody Screen Negative 05/06/20 14:50 Microbiology: Microbiology 05/06/20 16:55 Urine,Clean Catch Urine Culture - Final Todd/IV: IV Catheter Type [Right Medial INT / Saline Lock Port Hand] Active Medications - Current Medications Current Medications: Generic Name Dose Route Start Last Admin Trade Name Freq PRN Reason Stop Dose Admin Acetaminophen 1,000 mg 05/07/20 04:01 05/07/20 04:13 Acetaminophen 500 Mg Tab PO 1,000 mg Q4H PRN Administration Headache Acetaminophen 650 mg 05/07/20 04:12 05/07/20 20:53 Acetaminophen 325 Mg Tab PO 650 mg Q4H PRN Administration Pain MILD(1-3)/Fever >100.5 Carvedilol 25 mg 05/06/20 22:00 05/09/20 11:39 Carvedilol 25 Mg Tab PO 25 mg BID INDY Administration Docusate Sodium 100 mg 05/06/20 14:53 Docusate Sodium 100 Mg Cap PO Q12H PRN Constipation Hydralazine HCl 5 mg 05/06/20 16:03 05/08/20 21:12 Hydralazine 20 Mg/1 Ml Inj IV 5 mg Q30MIN PRN Administration Blood Pressure Hydromorphone HCl 0.5 mg 05/08/20 17:17 05/08/20 18:25 Hydromorphone 1 Mg/1 Ml Inj IV 0.5 mg Q5M PRN Administration BREAK Magnesium Sulfate 40 gm in 1,000 mls @ 25 mls/hr 05/08/20 12:00 05/08/20 18:10 Magnesium Sulfate 40gm/1000ml IV 1 gm/hr DIRECT INDY 25 mls/hr Administration 1 GM/HR Fentanyl/Bupivacaine/Sodium Chlor 200 mcg in 100 mls @ 8 mls/hr 05/08/20 16:00 Fentanyl-Bupiv 2 Mcg/Ml-0.125% EPIDURAL TITRATE [facility] Protocol Oxytocin/Sodium Chloride 30 units in 500 mls @ 40 mls/hr 05/08/20 16:00 Pitocin/Ns 30 Unit/500ml IV TITR [facility] Protocol Dextrose/Lactated Ringer's 1,000 mls @ 50 mls/hr 05/08/20 18:00 [id number] IV DIRECT [facility] Morphine Sulfate 4 mg 05/08/20 15:52 05/09/20 16:19 Morphine 4 Mg/1 Ml Inj IV 4 mg Q4H PRN Administration Pain , Severe (7-10) Multi-Ingredient Ointment 1 applic 05/08/20 15:52 Lanolin/Zinc/Dimethicone (Lansinoh) 7 Gm TP PRN PRN dryness/cracking Multivitamins/Iron/Calcium 1 each 05/07/20 10:00 05/09/20 10:18 [id number] Fumarate-Folic Acid Vit Tab PO Not Given QDAY [facility] Naloxone HCl 0.2 mg 05/08/20 17:17 Naloxone 0.4 Mg/1 Ml Inj IV Q2MIN PRN Res Rate </= 8 or 02 SAT < 92% Nifedipine 30 mg 05/08/20 12:00 05/08/20 12:31 Nifedipine Xl 30 Mg Tab PO 30 mg Q12H INDY Administration Ondansetron HCl 4 mg 05/08/20 17:17 Ondansetron 4 Mg/2 Ml Inj IV Q8H PRN Nausea And Vomiting Oxycodone/Acetaminophen 2 tab 05/08/20 15:52 05/09/20 10:17 Oxycodone /Acetaminophen 5-325mg Tab PO 2 tab Q4H PRN Administration Pain, Moderate (4-6) Promethazine HCl 25 mg 05/08/20 15:35 Promethazine 25 Mg Tab PO Q6H PRN Nausea And Vomiting Promethazine HCl 25 mg 05/08/20 15:35 Promethazine 25 Mg Rect Supp [place] Q6H PRN Nausea And Vomiting Sodium Chloride 10 ml 05/08/20 18:00 Sodium Chloride 0.9% 10 Ml Flush Syringe IV PRN INDY Witch Awilda/Glycerin 1 each 05/08/20 15:52 Witch Awilda/ Glycerin Pad TP PRN PRN Hemorrhoids/cleansing/soothing <REGINALDO CONTE E - Last Filed: 05/12/20 07:21> Assessment and Plan Assessment and plan: I saw and evaluated the patient. I agree with the findings and the plan of care as documented in the Nurse Practitioner's~note, with the following corrections and additions. Hospitalist Physical - Constitutional Vitals: Temp Pulse Resp BP Pulse Ox 97.9 F 89 20 137/86 93 05/12/20 01:28 05/12/20 06:07 05/12/20 01:28 05/12/20 06:07 05/12/20 06:07 Results - Labs CBC & Chem 7: 05/09/20 Unknown 05/11/20 06:55 Labs: Laboratory Last Values WBC 12.7 K/mm3 (4.5-11.0) H 05/09/20 Unknown RBC 3.29 M/mm3 (3.65-5.03) L 05/09/20 Unknown Hgb 9.5 gm/dl (10.1-14.3) L 05/09/20 Unknown Hct 29.0 % (30.3-42.9) L 05/09/20 Unknown MCV 88 fl (79-97) 05/09/20 Unknown MCH 29 pg (28-32) 05/09/20 Unknown MCHC 33 % (30-34) 05/09/20 Unknown RDW 14.9 % (13.2-15.2) 05/09/20 Unknown Plt Count 217 K/mm3 (140-440) 05/09/20 Unknown Lymph % (Auto) 18.3 % (13.4-35.0) 05/06/20 14:50 [place] % (Auto) 9.6 % (0.0-7.3) H 05/06/20 14:50 Eos % (Auto) 0.3 % (0.0-4.3) 05/06/20 14:50 Baso % (Auto) 0.1 % (0.0-1.8) 05/06/20 14:50 Lymph # (Auto) 2.0 K/mm3 (1.2-5.4) 05/06/20 14:50 [place] # (Auto) 1.0 K/mm3 (0.0-0.8) H 05/06/20 14:50 Eos # (Auto) 0.0 K/mm3 (0.0-0.4) 05/06/20 14:50 Baso # (Auto) 0.0 K/mm3 (0.0-0.1) 05/06/20 14:50 Seg Neutrophils % 71.7 % (40.0-70.0) H 05/06/20 14:50 Seg Neutrophils # 7.7 K/mm3 (1.8-7.7) 05/06/20 14:50 Sodium 137 mmol/L (137-145) 05/11/20 06:55 Potassium 3.7 mmol/L (3.6-5.0) 05/11/20 06:55 Chloride 104.5 mmol/L (98-107) 05/11/20 06:55 Carbon Dioxide 25 mmol/L (22-30) 05/11/20 06:55 Anion Gap 11 mmol/L 05/11/20 06:55 BUN 19 mg/dL (7-17) H 05/11/20 06:55 Creatinine 1.4 mg/dL (0.6-1.2) H 05/11/20 06:55 Estimated GFR 52 ml/min 05/11/20 06:55 BUN/Creatinine Ratio 14 % 05/11/20 06:55 Glucose 93 mg/dL (65-100) 05/11/20 06:55 Uric Acid 5.1 mg/dL (3.5-7.6) 05/08/20 14:50 Calcium 8.6 mg/dL (8.4-10.2) 05/11/20 06:55 Magnesium 2.80 mg/dL (1.7-2.3) H 05/11/20 06:55 Total Bilirubin 0.50 mg/dL (0.1-1.2) 05/09/20 Unknown AST 68 units/L (5-40) H 05/09/20 Unknown ALT 301 units/L (7-56) H 05/09/20 Unknown Alkaline Phosphatase 45 units/L (35-129) 05/09/20 Unknown Lactate Dehydrogenase 294 units/L (91-180) H 05/06/20 14:50 Total Protein 4.8 g/dL (6.3-8.2) L 05/09/20 Unknown Albumin 2.4 g/dL (3.9-5) L 05/09/20 Unknown Albumin/Globulin Ratio 1.0 % 05/09/20 Unknown Urine Color Yellow (Yellow) 05/06/20 16:55 Urine Turbidity Slightly-cloudy (Clear) 05/06/20 16:55 Urine pH 6.0 (5.0-7.0) 05/06/20 16:55 Ur Specific [place] 1.012 (1.003-1.030) 05/06/20 16:55 Urine Protein >500 mg/dL (Negative) 05/06/20 16:55 Urine Glucose (UA) Neg mg/dL (Negative) 05/06/20 16:55 Urine Ketones Neg mg/dL (Negative) 05/06/20 16:55 Urine Blood Sm (Negative) 05/06/20 16:55 Urine Nitrite Neg (Negative) 05/06/20 16:55 Urine Bilirubin Neg (Negative) 05/06/20 16:55 Urine Urobilinogen < 2.0 mg/dL (<2.0) 05/06/20 16:55 Ur Leukocyte Esterase Mod (Negative) 05/06/20 16:55 Urine WBC (Auto) 12.0 /HPF (0.0-6.0) H 05/06/20 16:55 Urine RBC (Auto) 14.0 /HPF (0.0-6.0) 05/06/20 16:55 U Epithel Cells (Auto) 18.0 /HPF (0-13.0) H 05/06/20 16:55 Urine Yeast (Budding) 1+ /HPF 05/06/20 16:55 Coronavirus (PCR) Negative (Negative) 05/07/20 18:46 Blood Type A POSITIVE 05/06/20 14:50 Antibody Screen Negative 05/06/20 14:50 Todd/IV: IV Catheter Type [Right Medial INT / Saline Lock Port Hand] Active Medications - Current Medications Current Medications: Generic Name Dose Route Start Last Admin Trade Name Freq PRN Reason Stop Dose Admin Acetaminophen 1,000 mg 05/07/20 04:01 05/07/20 04:13 Acetaminophen 500 Mg Tab PO 1,000 mg Q4H PRN Administration Headache Acetaminophen 650 mg 05/07/20 04:12 05/11/20 20:15 Acetaminophen 325 Mg Tab PO 650 mg Q4H PRN Administration Pain MILD(1-3)/Fever >100.5 Carvedilol 25 mg 05/06/20 22:00 05/11/20 22:00 Carvedilol 25 Mg Tab PO Not Given BID INDY Docusate Sodium 100 mg 05/06/20 14:53 05/11/20 22:04 Docusate Sodium 100 Mg Cap PO 100 mg Q12H PRN Administration Constipation Hydralazine HCl 5 mg 05/06/20 16:03 05/08/20 21:12 Hydralazine 20 Mg/1 Ml Inj IV 5 mg Q30MIN PRN Administration Blood Pressure Oxytocin/Sodium Chloride 30 units in 500 mls @ 40 mls/hr 05/08/20 16:00 Pitocin/Ns 30 Unit/500ml IV TITR [facility] Protocol Magnesium Hydroxide 30 ml 05/10/20 08:00 05/11/20 07:31 Magnesium Hydroxide (Mom) Oral Liqd Udc PO 30 ml Q4H INDY Administration Morphine Sulfate 4 mg 05/08/20 15:52 05/09/20 16:19 Morphine 4 Mg/1 Ml Inj IV 4 mg Q4H PRN Administration Pain , Severe (7-10) Multi-Ingredient Ointment 1 applic 05/08/20 15:52 Lanolin/Zinc/Dimethicone (Lansinoh) 7 Gm TP PRN PRN dryness/cracking Multivitamins/Iron/Calcium 1 each 05/07/20 10:00 05/11/20 10:18 [id number] Fumarate-Folic Acid Vit Tab PO 1 each QDAY INDY Administration Naloxone HCl 0.2 mg 05/08/20 17:17 Naloxone 0.4 Mg/1 Ml Inj IV Q2MIN PRN Res Rate </= 8 or 02 SAT < 92% Nifedipine 60 mg 05/10/20 22:00 05/11/20 22:04 Nifedipine Xl 60 Mg Tab PO 60 mg Q12HR INDY Administration Ondansetron HCl 4 mg 05/08/20 17:17 Ondansetron 4 Mg/2 Ml Inj IV Q8H PRN Nausea And Vomiting Oxycodone/Acetaminophen 2 tab 05/08/20 15:52 05/12/20 03:25 Oxycodone /Acetaminophen 5-325mg Tab PO 2 tab Q4H PRN Administration Pain, Moderate (4-6) Promethazine HCl 25 mg 05/08/20 15:35 05/10/20 18:02 Promethazine 25 Mg Tab PO 25 mg Q6H PRN Administration Nausea And Vomiting Promethazine HCl 25 mg 05/08/20 15:35 Promethazine 25 Mg Rect Supp OH Q6H PRN Nausea And Vomiting Sodium Chloride 10 ml 05/08/20 18:00 Sodium Chloride 0.9% 10 Ml Flush Syringe IV PRN INDY Witch Awilda/Glycerin 1 each 05/08/20 15:52 Witch Awilda/ Glycerin Pad TP PRN PRN Hemorrhoids/cleansing/soothing
[2020-05-10] MEDS: NIFEdipine XL 30 MG TAB PO SCH ×2 (01:36→12:30)
[2020-05-10] MEDS: oxyCODONE /ACETAMINOPHEN 5-325MG TAB PO PRN ×4 (01:36→22:29)
--- NOTE | 2020-05-10 07:45 | Progress Note ---
Assessment and Plan A: POD#2 s/p primary section at 26 wks Chronic hypertension with superimposed preeclampsia on magnesium sulfate for seizure prophylaxis CHF Chronic renal insufficiency Obesity P: Continue routine postop care Avoid nephrotoxic agents including NSAIDs Closely monitor clinical status Subjective - Subjective Date of service: 05/10/20 Principal diagnosis: s/p primary section, chronic htn with superimposed preeclampsia; Interval history: No complaints this morning. Denies headache, dyspnea or RUQ pain. Patient reports: appetite normal, voiding normally, pain well controlled, flatus, ambulating normally, no bowel movement [place]: in NICU Objective - Vital Signs Latest vital signs: Vital Signs Temp Pulse Resp BP BP Pulse Ox 05/10/20 05:06 97.9 F 79 20 139/105 99 05/10/20 02:36 18 05/10/20 01:36 18 05/10/20 00:11 97.8 F 81 18 134/95 97 05/09/20 22:45 18 141/100 05/09/20 22:44 81 141/100 05/09/20 20:23 18 05/09/20 19:23 18 05/09/20 19:03 97.6 F 69 20 141/96 99 05/09/20 18:20 71 74 L 05/09/20 18:17 80 L 05/09/20 18:14 79 95 05/09/20 18:12 81 94 05/09/20 18:09 81 96 05/09/20 18:05 78 94 05/09/20 18:04 83 95 05/09/20 17:59 78 94 05/09/20 17:58 86 94 05/09/20 17:54 78 95 05/09/20 17:53 77 94 05/09/20 17:52 76 125/91 05/09/20 17:49 80 96 05/09/20 17:45 80 94 05/09/20 17:44 81 95 05/09/20 17:40 80 93 05/09/20 17:39 77 95 05/09/20 17:35 78 94 05/09/20 17:34 79 95 05/09/20 17:30 78 94 05/09/20 17:29 81 97 05/09/20 17:24 80 97 05/09/20 17:22 77 127/90 05/09/20 17:19 81 92 12/14/20 17:14 81 97 12/14/20 17:09 81 96 12/14/20 17:04 79 97 12/14/20 16:59 81 94 12/14/20 16:54 86 94 12/14/20 16:53 82 94 12/14/20 16:52 78 127/88 12/14/20 16:49 80 95 12/14/20 16:44 78 97 12/14/20 16:39 80 96 12/14/20 16:36 82 93 12/14/20 16:34 80 97 12/14/20 16:29 78 97 12/14/20 16:24 79 97 12/14/20 16:22 81 133/99 94 12/14/20 16:20 97.3 F L 88 18 126/90 1214/20 16:19 77 97 12/14/20 16:14 82 97 12/14/20 16:09 76 98 12/14/20 16:04 79 97 1214/20 15:59 81 98 12/14/20 15:54 82 97 12/14/20 15:53 79 93 12/14/20 15:52 78 126/90 1214/20 15:49 79 98 12/14/20 15:44 74 97 12/14/20 15:43 82 94 12/14/20 15:39 75 97 12/14/20 15:36 77 94 12/14/20 15:34 78 97 12/14/20 15:29 79 97 12/14/20 15:24 81 95 12/14/20 15:23 81 94 12/14/20 15:22 76 132/97 12/14/20 15:19 79 95 12/14/20 15:16 78 94 12/14/20 15:14 78 95 12/14/20 15:11 87 94 12/14/20 15:09 80 94 12/14/20 15:05 80 94 12/14/20 15:04 81 95 12/14/20 15:00 84 94 12/14/20 14:59 82 96 12/14/20 14:55 82 94 12/14/20 14:54 77 97 12/14/20 14:52 79 128/90 12/14/20 14:50 79 93 12/14/20 14:49 79 95 12/14/20 14:45 165 H 94 12/14/20 14:44 100 H 94 12/14/20 14:39 86 93 12/14/20 14:34 98 H 94 1214/20 14:29 81 94 12/14/20 14:24 80 94 12/14/20 14:22 77 123/89 12/14/20 14:19 85 94 12/14/20 14:14 82 94 12/14/20 14:09 82 98 1214/20 14:04 83 97 12/14/20 13:59 81 99 12/14/20 13:54 83 96 12/14/20 13:53 79 94 12/14/20 13:52 78 125/92 12/14/20 13:49 79 97 12/14/20 13:44 80 94 12/14/20 13:41 80 94 12/14/20 13:39 79 95 12/14/20 13:36 80 94 12/14/20 13:34 78 95 12/14/20 13:29 82 94 12/14/20 13:25 84 94 12/14/20 13:24 84 94 12/14/20 13:22 79 139/97 12/14/20 13:19 82 94 12/14/20 13:14 80 95 12/14/20 13:10 78 94 12/14/20 13:09 79 95 1214/20 13:04 83 93 12/14/20 12:59 79 92 14/20 12:54 81 93 1214/20 12:52 78 137/91 12/14/20 12:51 81 93 12/14/20 12:49 102 H 96 1214/20 12:44 80 92 12/14/20 12:39 83 91 12/14/20 12:34 82 97 12/14/20 12:29 75 98 12/14/20 12:24 79 96 12/14/20 12:22 74 133/92 12/14/20 12:19 81 96 12/14/20 12:14 76 98 12/14/20 12:09 79 98 12/14/20 12:04 80 97 12/14/20 11:59 80 99 12/14/20 11:54 78 99 12/14/20 11:53 78 151/100 12/14/20 11:49 83 99 12/14/20 11:44 79 98 12/14/20 11:39 79 152/101 98 12/14/20 11:34 78 98 12/14/20 11:29 80 96 12/14/20 11:24 81 94 12/14/20 11:23 76 152/101 12/14/20 11:22 76 94 12/14/20 11:19 74 97 12/14/20 11:14 83 99 12/14/20 11:09 74 98 12/14/20 11:04 76 99 12/14/20 10:59 74 97 12/14/20 10:54 78 98 12/14/20 10:52 76 139/97 12/14/20 10:49 79 96 12/14/20 10:44 75 98 12/14/20 10:39 82 97 12/14/20 10:34 80 99 12/14/20 10:29 84 99 12/14/20 10:24 89 98 12/14/20 10:22 89 134/96 12/14/20 10:19 86 98 12/14/20 10:14 81 98 12/14/20 10:09 83 98 12/14/20 10:04 85 98 12/14/20 09:59 82 98 12/14/20 09:54 78 97 12/14/20 09:53 83 157/104 12/14/20 09:49 83 99 12/14/20 09:44 79 99 12/14/20 09:39 82 99 12/14/20 09:34 82 98 12/14/20 09:29 82 97 12/14/20 09:24 78 95 12/14/20 09:23 79 156/106 94 12/14/20 09:19 77 98 12/14/20 09:14 75 98 12/14/20 09:09 71 98 12/14/20 09:04 80 98 12/14/20 09:03 81 156/104 92 12/14/20 08:59 79 99 12/14/20 08:54 78 98 12/14/20 08:49 80 96 12/14/20 08:44 82 98 12/14/20 08:39 84 96 12/14/20 08:34 73 97 12/14/20 08:29 79 97 12/14/20 08:24 81 99 12/14/20 08:23 80 147/102 05/09/20 08:19 83 100 05/09/20 08:14 77 100 05/09/20 08:09 75 99 05/09/20 08:04 75 98 05/09/20 08:02 81 150/100 05/09/20 08:01 97.7 F 78 18 146/99 99 05/09/20 07:59 79 146/99 99 05/09/20 07:53 181 H 81 L 05/09/20 07:52 75 141/95 05/09/20 07:47 171 H 82 L Intake and Output 05/09/20 05/10/20 05/10/20 22:59 06:59 14:59 Intake Total 600 Output Total 250 650 Balance -250 -50 Intake: Oral 240 Intake, Free Water 360 Output: Urine 250 650 Indwelling Catheter 250 Void 650 Other: Total, Intake Amount 240 Total, Output Amount 100 350 # Voids Void 1 - Exam Breasts: Present: deferred Abdomen: Present: soft (obese ) Uterus: Present: fundal height below umbilicus Extremities: Present: edema (trace) Incision: Present: dressed - Labs Labs: Abnormal lab results 05/09/20 05/09/20 05/09/20 Range/Units 14:48 Unknown Unknown WBC 12.7 H (4.5-11.0) K/mm3 RBC 3.29 L (3.65-5.03) M/mm3 Hgb 9.5 L (10.1-14.3) gm/dl Hct 29.0 L (30.3-42.9) % Sodium 128 L D (137-145) mmol/L Chloride 97.8 L (98-107) mmol/L Carbon Dioxide 20 L (22-30) mmol/L Calcium 7.7 L (8.4-10.2) mg/dL Magnesium 5.90 H (1.7-2.3) mg/dL AST 68 H (5-40) units/L ALT 301 H (7-56) units/L Total Protein 4.8 L (6.3-8.2) g/dL Albumin 2.4 L (3.9-5) g/dL 05/09/20 Range/Units Unknown WBC (4.5-11.0) K/mm3 RBC (3.65-5.03) M/mm3 Hgb (10.1-14.3) gm/dl Hct (30.3-42.9) % Sodium (137-145) mmol/L Chloride (98-107) mmol/L Carbon Dioxide (22-30) mmol/L Calcium (8.4-10.2) mg/dL Magnesium 15.30 H (1.7-2.3) mg/dL AST (5-40) units/L ALT (7-56) units/L Total Protein (6.3-8.2) g/dL Albumin (3.9-5) g/dL
[2020-05-10 09:25] LABS: Calcium 8.3 mg/dL (8.4-10.2)
[2020-05-10] MEDS: carvediloL 25 MG TAB PO SCH ×2 (10:10→22:26)
[2020-05-10] MEDS: PRENATAL VIT27-FE FUMARATE-FOLIC ACID VIT TAB PO SCH (11:12)
[2020-05-10] MEDS: MAGNESIUM HYDROXIDE (MOM) ORAL LIQD UDC PO SCH (11:16)
[2020-05-10] MEDS ORDERED: NIFEdipine XL 30 MG TAB PO SCH (16:49)
--- NOTE | 2020-05-10 17:02 | Progress Note ---
Assessment and Plan - Patient Problems (1) S/P Current Visit: Yes Status: Acute Plan to address problem: S/p 05/08 Care per primary (2) Hypertension Current Visit: Yes Status: Chronic Qualifiers: Hypertension type: essential hypertension Qualified Code(s): I10 - Essential (primary) hypertension Plan to address problem: Cardiology consulted 01/2020 TTE showed EF 40 to 45% with grade 2 diastolic dysfunction and moderate MR Continue current antihypertensive regimen, titrate as needed Blood pressure monitoring per protocol Will need to discharge with antihypertensives f/u with cardiology within 1 to 2 weeks of discharge f/u PCP within 1 to 2 weeks of discharge (3) Hyponatremia Current Visit: Yes Status: Acute Plan to address problem: 05/08 sodium 135, 05/09 sodium 128, 05/10 sodium 132 Trend BMP 05/10 normal saline for 1 L (4) Hypermagnesemia Current Visit: Yes Status: Acute Plan to address problem: 05/09 magnesium 4, 05/09 magnesium 5.9, 05/09 magnesium 5.3, 05/10 magnesium 4 S/p magnesium drip Trend magnesium Should resolve since magnesium drip is off (5) Acute renal failure Current Visit: Yes Status: Acute Qualifiers: Acute renal failure type: with acute tubular necrosis Qualified Code(s): N17.0 - Acute kidney failure with tubular necrosis Plan to address problem: Patient has a history of chronic renal failure stage III Patient presented with a creatinine of 1.1, 05/09 creatinine 0.9 05/10 creatinine 1.4 05/10 normal saline for 1 L Trend BMP Avoid nephrotoxic medications Strict intake and output Consider further studies and nephrology consult if not improving Likely secondary to vasomotor nephropathy (6) DVT prophylaxis Current Visit: Yes Status: Acute Plan to address problem: SCDs to bilateral extremities while in bed History Interval history: 35 YO Female at 23 weeks gestation with CHF, HTN. She is s/p csection 05/08. Patient's hypermagnesemia is improving, remains hyponatremic, has metabolic acidosis on BMP and had a increase in her renal function 1.4/19 from 0.9/13 yesterday. Patient was on D5 IVF which was discontinued and she will be on normal saline for 1 L. We will trend her BMP. Patient also has slight leukocytosis at 12.7 which is likely secondary to her . She is also hypertensive and we increased her blood pressure medications. We will continue to monitor. Hospitalist Physical - Physical exam Narrative exam: General appearance: Present: no acute distress, obese - EENT Eyes: Present: PERRL, EOM intact ENT: hearing intact, clear oral mucosa, dentition normal - Neck Neck: Present: supple, normal ROM - Respiratory Respiratory effort: normal Respiratory: bilateral: CTA - Cardiovascular Rhythm: regular Heart Sounds: Present: S1 & S2. Absent: systolic murmur, diastolic murmur - Extremities Extremities: no ischemia, pulses intact, pulses symmetrical, normal temperature, normal color, Full ROM Extremity abnormal: edema - Peripheral Assessment Bilateral Foot Edema Type: Non-pitting Capillary Refill: < 3 seconds Skin Temperature: Warm Peripheral Pulses: within normal limits - Abdominal General gastrointestinal: soft, non-tender, non-distended - Integumentary Integumentary: Present: clear, warm, dry - Psychiatric Psychiatric: appropriate mood/affect, cooperative - Neurologic Neurologic: CNII-XII intact, no focal deficits, moves all extremities - Constitutional Vitals: Temp Pulse Resp BP Pulse Ox 98.0 F 83 18 153/98 100 05/10/20 12:29 05/10/20 12:29 05/10/20 12:29 05/10/20 12:29 05/10/20 12:29 General appearance: Present: no acute distress, obese Results - Labs CBC & Chem 7: 05/09/20 Unknown 05/10/20 08:39 Labs: Laboratory Last Values WBC 12.7 K/mm3 (4.5-11.0) H 05/09/20 Unknown RBC 3.29 M/mm3 (3.65-5.03) L 05/09/20 Unknown Hgb 9.5 gm/dl (10.1-14.3) L 05/09/20 Unknown Hct 29.0 % (30.3-42.9) L 05/09/20 Unknown MCV 88 fl (79-97) 05/09/20 Unknown MCH 29 pg (28-32) 05/09/20 Unknown MCHC 33 % (30-34) 05/09/20 Unknown RDW 14.9 % (13.2-15.2) 05/09/20 Unknown Plt Count 217 K/mm3 (140-440) 12/14/20 Unknown Lymph % (Auto) 18.3 % (13.4-35.0) 05/06/20 14:50 [place] % (Auto) 9.6 % (0.0-7.3) H 05/06/20 14:50 Eos % (Auto) 0.3 % (0.0-4.3) 05/06/20 14:50 Baso % (Auto) 0.1 % (0.0-1.8) 05/06/20 14:50 Lymph # (Auto) 2.0 K/mm3 (1.2-5.4) 05/06/20 14:50 [place] # (Auto) 1.0 K/mm3 (0.0-0.8) H 05/06/20 14:50 Eos # (Auto) 0.0 K/mm3 (0.0-0.4) 05/06/20 14:50 Baso # (Auto) 0.0 K/mm3 (0.0-0.1) 05/06/20 14:50 Seg Neutrophils % 71.7 % (40.0-70.0) H 05/06/20 14:50 Seg Neutrophils # 7.7 K/mm3 (1.8-7.7) 05/06/20 14:50 Sodium 132 mmol/L (137-145) L 05/10/20 08:39 Potassium 4.2 mmol/L (3.6-5.0) 05/10/20 08:39 Chloride 100.6 mmol/L (98-107) 05/10/20 08:39 Carbon Dioxide 20 mmol/L (22-30) L 05/10/20 08:39 Anion Gap 16 mmol/L 05/10/20 08:39 BUN 19 mg/dL (7-17) H 05/10/20 08:39 Creatinine 1.4 mg/dL (0.6-1.2) H D 05/10/20 08:39 Estimated GFR 52 ml/min 05/10/20 08:39 BUN/Creatinine Ratio 14 % 05/10/20 08:39 Glucose 118 mg/dL (65-100) H 05/10/20 08:39 Uric Acid 5.1 mg/dL (3.5-7.6) 05/08/20 14:50 Calcium 8.3 mg/dL (8.4-10.2) L 05/10/20 08:39 Magnesium 4.00 mg/dL (1.7-2.3) H 05/10/20 08:39 Total Bilirubin 0.50 mg/dL (0.1-1.2) 05/09/20 Unknown AST 68 units/L (5-40) H 05/09/20 Unknown ALT 301 units/L (7-56) H 05/09/20 Unknown Alkaline Phosphatase 45 units/L (35-129) 05/09/20 Unknown Lactate Dehydrogenase 294 units/L (91-180) H 05/06/20 14:50 Total Protein 4.8 g/dL (6.3-8.2) L 05/09/20 Unknown Albumin 2.4 g/dL (3.9-5) L 05/09/20 Unknown Albumin/Globulin Ratio 1.0 % 05/09/20 Unknown Urine Color Yellow (Yellow) 05/06/20 16:55 Urine Turbidity Slightly-cloudy (Clear) 05/06/20 16:55 Urine pH 6.0 (5.0-7.0) 05/06/20 16:55 Ur Specific [place] 1.012 (1.003-1.030) 05/06/20 16:55 Urine Protein >500 mg/dL (Negative) 05/06/20 16:55 Urine Glucose (UA) Neg mg/dL (Negative) 05/06/20 16:55 Urine Ketones Neg mg/dL (Negative) 05/06/20 16:55 Urine Blood Sm (Negative) 05/06/20 16:55 Urine Nitrite Neg (Negative) 05/06/20 16:55 Urine Bilirubin Neg (Negative) 05/06/20 16:55 Urine Urobilinogen < 2.0 mg/dL (<2.0) 05/06/20 16:55 Ur Leukocyte Esterase Mod (Negative) 05/06/20 16:55 Urine WBC (Auto) 12.0 /HPF (0.0-6.0) H 05/06/20 16:55 Urine RBC (Auto) 14.0 /HPF (0.0-6.0) 05/06/20 16:55 U Epithel Cells (Auto) 18.0 /HPF (0-13.0) H 05/06/20 16:55 Urine Yeast (Budding) 1+ /HPF 05/06/20 16:55 Coronavirus (PCR) Negative (Negative) 05/07/20 18:46 Blood Type A POSITIVE 05/06/20 14:50 Antibody Screen Negative 05/06/20 14:50 Todd/IV: IV Catheter Type [Right Medial INT / Saline Lock Port Hand] Active Medications - Current Medications Current Medications: Generic Name Dose Route Start Last Admin Trade Name Freq PRN Reason Stop Dose Admin Acetaminophen 1,000 mg 05/07/20 04:01 05/07/20 04:13 Acetaminophen 500 Mg Tab PO 1,000 mg Q4H PRN Administration Headache Acetaminophen 650 mg 05/07/20 04:12 05/07/20 20:53 Acetaminophen 325 Mg Tab PO 650 mg Q4H PRN Administration Pain MILD(1-3)/Fever >100.5 Carvedilol 25 mg 05/06/20 22:00 05/10/20 10:10 Carvedilol 25 Mg Tab PO 25 mg BID INDY Administration Docusate Sodium 100 mg 05/06/20 14:53 Docusate Sodium 100 Mg Cap PO Q12H PRN Constipation Hydralazine HCl 5 mg 05/06/20 16:03 05/08/20 21:12 Hydralazine 20 Mg/1 Ml Inj IV 5 mg Q30MIN PRN Administration Blood Pressure Hydromorphone HCl 0.5 mg 05/08/20 17:17 05/08/20 18:25 Hydromorphone 1 Mg/1 Ml Inj IV 0.5 mg Q5M PRN Administration BREAK Fentanyl/Bupivacaine/Sodium Chlor 200 mcg in 100 mls @ 8 mls/hr 05/08/20 16:00 Fentanyl-Bupiv 2 Mcg/Ml-0.125% EPIDURAL TITRATE [facility] Protocol Oxytocin/Sodium Chloride 30 units in 500 mls @ 40 mls/hr 05/08/20 16:00 Pitocin/Ns 30 Unit/500ml IV TITR [facility] Protocol Dextrose/Lactated Ringer's 1,000 mls @ 75 mls/hr 05/08/20 18:00 D5lr IV DIRECT INDY Magnesium Hydroxide 30 ml 05/10/20 08:00 05/10/20 11:16 Magnesium Hydroxide (Mom) Oral Liqd Udc PO 30 ml Q4H INDY Administration Morphine Sulfate 4 mg 05/08/20 15:52 05/09/20 16:19 Morphine 4 Mg/1 Ml Inj IV 4 mg Q4H PRN Administration Pain , Severe (7-10) Multi-Ingredient Ointment 1 applic 05/08/20 15:52 Lanolin/Zinc/Dimethicone (Lansinoh) 7 Gm TP PRN PRN dryness/cracking Multivitamins/Iron/Calcium 1 each 05/07/20 10:00 05/10/20 11:12 [id number] Fumarate-Folic Acid Vit Tab PO Not Given QDAY INDY Naloxone HCl 0.2 mg 05/08/20 17:17 Naloxone 0.4 Mg/1 Ml Inj IV Q2MIN PRN Res Rate </= 8 or 02 SAT < 92% Nifedipine 60 mg 05/10/20 16:49 Nifedipine Xl 30 Mg Tab PO Q12H INDY Ondansetron HCl 4 mg 05/08/20 17:17 Ondansetron 4 Mg/2 Ml Inj IV Q8H PRN Nausea And Vomiting Oxycodone/Acetaminophen 2 tab 05/08/20 15:52 05/10/20 14:15 Oxycodone /Acetaminophen 5-325mg Tab PO 2 tab Q4H PRN Administration Pain, Moderate (4-6) Promethazine HCl 25 mg 05/08/20 15:35 Promethazine 25 Mg Tab PO Q6H PRN Nausea And Vomiting Promethazine HCl 25 mg 05/08/20 15:35 Promethazine 25 Mg Rect Supp [place] Q6H PRN Nausea And Vomiting Sodium Chloride 10 ml 05/08/20 18:00 Sodium Chloride 0.9% 10 Ml Flush Syringe IV PRN INDY Sodium Chloride 100 ml 05/10/20 17:00 Sodium Chloride 0.9% 100 Ml Ivpb IV 05/10/20 17:01 DIRECT [facility] Witch Awilda/Glycerin 1 each 05/08/20 15:52 Witch Awilda/ Glycerin Pad TP PRN PRN Hemorrhoids/cleansing/soothing
[2020-05-10] MEDS ORDERED: SODIUM CHLORIDE 0.9% 100 ML IVPB IV SCH (18:00)
[2020-05-10] MEDS: NIFEdipine XL 60 MG TAB PO SCH (21:57)
[2020-05-11] MEDS: MAGNESIUM HYDROXIDE (MOM) ORAL LIQD UDC PO SCH ×2 (07:01→07:31)
[2020-05-11 08:08] LABS: Calcium 8.6 mg/dL (8.4-10.2)
--- NOTE | 2020-05-11 09:59 | Progress Note ---
Assessment and Plan - Patient Problems (1) S/P Current Visit: Yes Status: Acute Plan to address problem: S/p 05/08 Care per primary (2) Hypertension Current Visit: Yes Status: Chronic Qualifiers: Hypertension type: essential hypertension Qualified Code(s): I10 - Essential (primary) hypertension Plan to address problem: Cardiology consulted 01/2020 TTE showed EF 40 to 45% with grade 2 diastolic dysfunction and moderate MR Continue current antihypertensive regimen, titrate as needed Blood pressure monitoring per protocol Will need to discharge with antihypertensives f/u with cardiology within 1 to 2 weeks of discharge f/u PCP within 1 to 2 weeks of discharge (3) Hyponatremia Current Visit: Yes Status: Resolved Plan to address problem: 05/08 sodium 135, 05/09 sodium 128, 05/10 sodium 132 Trend BMP 05/10 normal saline for 1 L 05/11 sodium 137 (4) Hypermagnesemia Current Visit: Yes Status: Acute Plan to address problem: 05/09 magnesium 4, 05/09 magnesium 5.9, 05/09 magnesium 5.3, 05/10 magnesium 4, 05/11 magnesium 2.8 S/p magnesium drip Trend magnesium Should resolve since magnesium drip is off (5) Acute renal failure Current Visit: Yes Status: Acute Qualifiers: Acute renal failure type: with acute tubular necrosis Qualified Code(s): N17.0 - Acute kidney failure with tubular necrosis Plan to address problem: Patient has a history of chronic renal failure stage III Patient presented with a creatinine of 1.1, 05/09 creatinine 0.9 05/10 creatinine 1.4 and she is s/p normal saline for 1 L 04/26 16 BUN/creatinine 19/1.4 Trend BMP Avoid nephrotoxic medications Strict intake and output Consider further studies and nephrology consult if not improving Likely secondary to vasomotor nephropathy Patient states this is her baseline creatinine (6) DVT prophylaxis Current Visit: Yes Status: Acute Plan to address problem: SCDs to bilateral extremities while in bed History Interval history: 35 YO Female at 23 weeks gestation with CHF, HTN. She is s/p csection 05/08. Today her BUN/Cr 19/1.4 which did not improve after 1L NS but the patient informed me yesterday that this is her baseline. Her BP is stable and her Mg decreased with resolution of her hyponatremia and metabolic acidosis. Disposition per primary. 05/09: Patient's hypermagnesemia is improving, remains hyponatremic, has metabolic acidosis on BMP and had a increase in her renal function 1.4/19 from 0.9/13 yesterday. Patient was on D5 IVF which was discontinued and she will be on normal saline for 1 L. We will trend her BMP. Patient also has slight leukocytosis at 12.7 which is likely secondary to her . She is also hypertensive and we increased her blood pressure medications. We will continue to monitor. Hospitalist Physical - Physical exam Narrative exam: General appearance: Present: no acute distress, obese - EENT Eyes: Present: PERRL, EOM intact ENT: hearing intact, clear oral mucosa, dentition normal - Neck Neck: Present: supple, normal ROM - Respiratory Respiratory effort: normal Respiratory: bilateral: CTA - Cardiovascular Rhythm: regular Heart Sounds: Present: S1 & S2. Absent: systolic murmur, diastolic murmur - Extremities Extremities: no ischemia, pulses intact, pulses symmetrical, normal temperature, normal color, Full ROM Extremity abnormal: edema - Peripheral Assessment Bilateral Foot Edema Type: Non-pitting Capillary Refill: < 3 seconds Skin Temperature: Warm Peripheral Pulses: within normal limits - Abdominal General gastrointestinal: soft, non-tender, non-distended - Integumentary Integumentary: Present: clear, warm, dry - Psychiatric Psychiatric: appropriate mood/affect, cooperative - Neurologic Neurologic: CNII-XII intact, no focal deficits, moves all extremities - Constitutional Vitals: Temp Pulse Resp BP Pulse Ox 97.8 F 90 20 138/86 90 05/11/20 00:33 05/11/20 05:16 05/11/20 00:33 05/11/20 05:16 05/11/20 05:16 General appearance: Present: no acute distress, obese Results - Labs CBC & Chem 7: 05/09/20 Unknown 05/11/20 06:55 Labs: Laboratory Last Values WBC 12.7 K/mm3 (4.5-11.0) H 05/09/20 Unknown RBC 3.29 M/mm3 (3.65-5.03) L 05/09/20 Unknown Hgb 9.5 gm/dl (10.1-14.3) L 05/09/20 Unknown Hct 29.0 % (30.3-42.9) L 05/09/20 Unknown MCV 88 fl (79-97) 05/09/20 Unknown MCH 29 pg (28-32) 05/09/20 Unknown MCHC 33 % (30-34) 05/09/20 Unknown RDW 14.9 % (13.2-15.2) 05/09/20 Unknown Plt Count 217 K/mm3 (140-440) 05/09/20 Unknown Lymph % (Auto) 18.3 % (13.4-35.0) 05/06/20 14:50 [place] % (Auto) 9.6 % (0.0-7.3) H 05/06/20 14:50 Eos % (Auto) 0.3 % (0.0-4.3) 05/06/20 14:50 Baso % (Auto) 0.1 % (0.0-1.8) 05/06/20 14:50 Lymph # (Auto) 2.0 K/mm3 (1.2-5.4) 05/06/20 14:50 [place] # (Auto) 1.0 K/mm3 (0.0-0.8) H 05/06/20 14:50 Eos # (Auto) 0.0 K/mm3 (0.0-0.4) 05/06/20 14:50 Baso # (Auto) 0.0 K/mm3 (0.0-0.1) 05/06/20 14:50 Seg Neutrophils % 71.7 % (40.0-70.0) H 05/06/20 14:50 Seg Neutrophils # 7.7 K/mm3 (1.8-7.7) 05/06/20 14:50 Sodium 137 mmol/L (137-145) 05/11/20 06:55 Potassium 3.7 mmol/L (3.6-5.0) 05/11/20 06:55 Chloride 104.5 mmol/L (98-107) 05/11/20 06:55 Carbon Dioxide 25 mmol/L (22-30) 05/11/20 06:55 Anion Gap 11 mmol/L 05/11/20 06:55 BUN 19 mg/dL (7-17) H 05/11/20 06:55 Creatinine 1.4 mg/dL (0.6-1.2) H 05/11/20 06:55 Estimated GFR 52 ml/min 05/11/20 06:55 BUN/Creatinine Ratio 14 % 05/11/20 06:55 Glucose 93 mg/dL (65-100) 05/11/20 06:55 Uric Acid 5.1 mg/dL (3.5-7.6) 05/08/20 14:50 Calcium 8.6 mg/dL (8.4-10.2) 05/11/20 06:55 Magnesium 2.80 mg/dL (1.7-2.3) H 05/11/20 06:55 Total Bilirubin 0.50 mg/dL (0.1-1.2) 05/09/20 Unknown AST 68 units/L (5-40) H 05/09/20 Unknown ALT 301 units/L (7-56) H 05/09/20 Unknown Alkaline Phosphatase 45 units/L (35-129) 05/09/20 Unknown Lactate Dehydrogenase 294 units/L (91-180) H 05/06/20 14:50 Total Protein 4.8 g/dL (6.3-8.2) L 05/09/20 Unknown Albumin 2.4 g/dL (3.9-5) L 05/09/20 Unknown Albumin/Globulin Ratio 1.0 % 05/09/20 Unknown Urine Color Yellow (Yellow) 05/06/20 16:55 Urine Turbidity Slightly-cloudy (Clear) 05/06/20 16:55 Urine pH 6.0 (5.0-7.0) 05/06/20 16:55 Ur Specific [place] 1.012 (1.003-1.030) 05/06/20 16:55 Urine Protein >500 mg/dL (Negative) 05/06/20 16:55 Urine Glucose (UA) Neg mg/dL (Negative) 05/06/20 16:55 Urine Ketones Neg mg/dL (Negative) 05/06/20 16:55 Urine Blood Sm (Negative) 05/06/20 16:55 Urine Nitrite Neg (Negative) 05/06/20 16:55 Urine Bilirubin Neg (Negative) 05/06/20 16:55 Urine Urobilinogen < 2.0 mg/dL (<2.0) 05/06/20 16:55 Ur Leukocyte Esterase Mod (Negative) 05/06/20 16:55 Urine WBC (Auto) 12.0 /HPF (0.0-6.0) H 05/06/20 16:55 Urine RBC (Auto) 14.0 /HPF (0.0-6.0) 05/06/20 16:55 U Epithel Cells (Auto) 18.0 /HPF (0-13.0) H 05/06/20 16:55 Urine Yeast (Budding) 1+ /HPF 05/06/20 16:55 Coronavirus (PCR) Negative (Negative) 05/07/20 18:46 Blood Type A POSITIVE 05/06/20 14:50 Antibody Screen Negative 05/06/20 14:50 Todd/IV: IV Catheter Type [Right Medial INT / Saline Lock Port Hand] Active Medications - Current Medications Current Medications: Generic Name Dose Route Start Last Admin Trade Name Freq PRN Reason Stop Dose Admin Acetaminophen 1,000 mg 05/07/20 04:01 05/07/20 04:13 Acetaminophen 500 Mg Tab PO 1,000 mg Q4H PRN Administration Headache Acetaminophen 650 mg 05/07/20 04:12 05/07/20 20:53 Acetaminophen 325 Mg Tab PO 650 mg Q4H PRN Administration Pain MILD(1-3)/Fever >100.5 Carvedilol 25 mg 05/06/20 22:00 05/10/20 22:26 Carvedilol 25 Mg Tab PO 25 mg BID INDY Administration Docusate Sodium 100 mg 05/06/20 14:53 Docusate Sodium 100 Mg Cap PO Q12H PRN Constipation Hydralazine HCl 5 mg 05/06/20 16:03 05/08/20 21:12 Hydralazine 20 Mg/1 Ml Inj IV 5 mg Q30MIN PRN Administration Blood Pressure Oxytocin/Sodium Chloride 30 units in 500 mls @ 40 mls/hr 05/08/20 16:00 Pitocin/Ns 30 Unit/500ml IV TITR INDY Protocol Magnesium Hydroxide 30 ml 05/10/20 08:00 05/11/20 07:31 Magnesium Hydroxide (Mom) Oral Liqd Udc PO 30 ml Q4H INDY Administration Morphine Sulfate 4 mg 05/08/20 15:52 05/09/20 16:19 Morphine 4 Mg/1 Ml Inj IV 4 mg Q4H PRN Administration Pain , Severe (7-10) Multi-Ingredient Ointment 1 applic 05/08/20 15:52 Lanolin/Zinc/Dimethicone (Lansinoh) 7 Gm TP PRN PRN dryness/cracking Multivitamins/Iron/Calcium 1 each 05/07/20 10:00 05/10/20 11:12 [id number] Fumarate-Folic Acid Vit Tab PO Not Given QDAY INDY Naloxone HCl 0.2 mg 05/08/20 17:17 Naloxone 0.4 Mg/1 Ml Inj IV Q2MIN PRN Res Rate </= 8 or 02 SAT < 92% Nifedipine 60 mg 05/10/20 22:00 05/10/20 21:57 Nifedipine Xl 60 Mg Tab PO 60 mg Q12HR INDY Administration Ondansetron HCl 4 mg 05/08/20 17:17 Ondansetron 4 Mg/2 Ml Inj IV Q8H PRN Nausea And Vomiting Oxycodone/Acetaminophen 2 tab 05/08/20 15:52 05/10/20 22:29 Oxycodone /Acetaminophen 5-325mg Tab PO 2 tab Q4H PRN Administration Pain, Moderate (4-6) Promethazine HCl 25 mg 05/08/20 15:35 05/10/20 18:02 Promethazine 25 Mg Tab PO 25 mg Q6H PRN Administration Nausea And Vomiting Promethazine HCl 25 mg 05/08/20 15:35 Promethazine 25 Mg Rect Supp [place] Q6H PRN Nausea And Vomiting Sodium Chloride 10 ml 05/08/20 18:00 Sodium Chloride 0.9% 10 Ml Flush Syringe IV PRN INDY Witch Awilda/Glycerin 1 each 05/08/20 15:52 Witch Awilda/ Glycerin Pad TP PRN PRN Hemorrhoids/cleansing/soothing
[2020-05-11] MEDS: NIFEdipine XL 60 MG TAB PO SCH ×2 (10:17→22:04)
[2020-05-11] MEDS: oxyCODONE /ACETAMINOPHEN 5-325MG TAB PO PRN ×2 (10:17→16:00)
[2020-05-11] MEDS: PRENATAL VIT27-FE FUMARATE-FOLIC ACID VIT TAB PO SCH (10:18)
[2020-05-11] MEDS: carvediloL 25 MG TAB PO SCH ×3 (11:28→22:08)
--- NOTE | 2020-05-11 19:11 | Progress Note ---
Assessment and Plan A: POD#3 s/p primary section at 26 wks Chronic hypertension with superimposed preeclampsia Mag dc'd at , BP normal to mild on current antihypertensive medications CHF Chronic renal insufficiency Obesity in NICU P: Continue routine postop care Avoid nephrotoxic agents including NSAIDs Monitor x 24 post magnesium discontinuation-BPs stable Recommend 1-2week FU to evaluate for depression Anticipate discharge in AM Subjective - Subjective Date of service: 05/11/20 Principal diagnosis: s/p primary section, chronic htn with superimposed preeclampsia; Patient reports: appetite normal, pain well controlled, flatus, ambulating normally, other (Denies OCHOA, RUQ pain, or changes to vision) : in NICU Objective - Vital Signs Latest vital signs: Vital Signs Temp Pulse Resp BP Pulse Ox 05/11/20 16:48 98.9 F 92 H 18 131/88 93 05/11/20 11:28 78 05/11/20 08:25 98.2 F 89 20 138/92 96 05/11/20 05:16 90 138/86 90 05/11/20 00:33 97.8 F 83 20 132/87 95 05/10/20 22:40 90 130/83 95 05/10/20 22:26 77 Intake and Output 05/11/20 05/11/20 05/11/20 06:59 14:59 22:59 Intake Total 240 240 840 Balance 240 240 840 Intake: Oral 240 240 480 Intake, Free Water 360 Other: Total, Intake Amount 120 240 480 # Voids Void 1 1 2 - Exam Breasts: Present: normal Cardiovascular: Present: Regular rate Lungs: Present: Clear to auscultation Abdomen: Present: normal appearance, normal bowel sounds, other (incision xu n/dry/intact with steri-strips) Uterus: Present: normal, firm Extremities: Present: normal Incision: Present: normal, dry, intact - Labs Labs: Abnormal lab results 05/11/20 Range/Units 06:55 BUN 19 H (7-17) mg/dL Creatinine 1.4 H (0.6-1.2) mg/dL Magnesium 2.80 H (1.7-2.3) mg/dL
[2020-05-11] MEDS: ACETAMINOPHEN 325 MG TAB PO PRN (20:15)
[2020-05-12] MEDS: oxyCODONE /ACETAMINOPHEN 5-325MG TAB PO PRN ×2 (03:25→10:14)
--- NOTE | 2020-05-12 08:26 | Progress Note ---
Assessment and Plan A: POD#3 s/p primary section at 26 wks Chronic hypertension with superimposed preeclampsia S/p Mag, BP normal on current antihypertensive medications CHF Chronic renal insufficiency Obesity in NICU Acute anemia due to blood loss P: Avoid nephrotoxic agents including NSAIDs Ferrous sulfate supplementation Discharge to home with f/u in 1 week to evaluate for depression Subjective - Subjective Date of service: 05/12/20 Principal diagnosis: s/p primary c section, chronic htn with superimposed pree, CHF, CRI Interval history: POD4 s/p section at 26 weeks EGA, mag sulfate for severe pree. Appreciate medicine consult and recommendations. Patient reports: appetite normal, voiding normally, pain well controlled, flat us, ambulating normally : in NICU Objective - Vital Signs Latest vital signs: Vital Signs Temp Pulse Resp BP Pulse Ox 05/12/20 06:07 89 137/86 93 05/12/20 01:28 97.9 F 89 20 135/83 92 05/11/20 22:00 65 128/73 05/11/20 20:55 89 114/71 97 05/11/20 16:48 98.9 F 92 H 18 131/88 93 05/11/20 11:28 78 05/11/20 08:25 98.2 F 89 20 138/92 96 Intake and Output 05/11/20 05/12/20 05/12/20 23:59 07:59 15:59 Intake Total 1080 240 Balance 1080 240 Intake: Oral 720 240 Intake, Free Water 360 Other: Total, Intake Amount 240 120 # Voids Void 1 1 - Exam Abdomen: Present: soft. Absent: distention Uterus: Present: firm, fundal height below umbilicus Extremities: Present: normal Incision: Present: normal, dry, intact
--- NOTE | 2020-05-12 08:32 | Discharge Summary ---
Providers - Providers Date of Admission: 05/06/20 13:57 Date of discharge: 05/12/20 Attending physician: DYLON VALLADARES 05/07/20 12:24 Consult to Physician [CONS] Routine Comment: Consulting Provider: REGINALDO CONTE Physician Instructions: Reason For Exam: chronic hypertension and heart failure in pregnanc 05/07/20 12:47 Consult to Physician [CONS] Routine Comment: Consulting Provider: DEBI JUDD Physician Instructions: Reason For Exam: iugr Primary care physician: ARIANA GARRETT MD Hospitalization Reason for admission: IUP - , observation (for chronic renal insufficiency) Delivery: Procedure: primary low transverse Incision: normal, dry, intact Other procedures: none complications: none Discharge diagnosis: delivery [place] baby: male Hospital course: Pt presented for inpatient management of chronic renal insufficiency. She was found to have superimposed preeclampsia and IUGR, and underwent a primary LTCS at 26 weeks EGA. She received magnesium sulfate for 24 hours . She will follow up with cardiology and nephrology in 1-2 weeks, and [facility]. Condition at discharge: Stable Disposition: [id number] TO HOME OR SELFCARE Plan - Discharge Medications Prescriptions: carvediloL [Coreg] 25 mg PO BID #60 tablet Ferrous Sulfate [Feosol 325 MG tab] 325 mg PO BID #60 tablet oxyCODONE /ACETAMINOPHEN [Percocet 5/325] 1 tab PO Q6HR PRN #40 tablet PRN Reason: Pain NIFEdipine XL [Procardia Xl] 30 mg PO Q12HR #60 tab - Provider Discharge Summary Activity: routine, no sex for 6 weeks, no heavy lifting 4 weeks, no strenuous exercise Diet: routine Instructions: routine Additional instructions: [] Smoking cessation referral if applicable(refer to patient education folder for contact #) [] Refer to [facility]'s [facility] Booklet Call your doctor immediately for: * Fever > 100.5 * Heavy vaginal bleeding ( >1 pad per hour) * Severe persistent headache * Shortness of breath * Reddened, hot, painful area to leg or breast * Drainage or odor from incision. * Keep incision clean and dry at all times and follow doctor's instructions regarding bathing/showering - Follow up plan Follow up: ARIANA GARRETT MD [Primary Care Provider] - 7 Days
--- NOTE | 2020-05-12 09:51 | Progress Note ---
<RADHAGORDY ZackeryKatie - Last Filed: 05/12/20 09:47> Assessment and Plan - Patient Problems (1) S/P Status: Acute Plan to address problem: S/p 05/08 Care per primary (2) Hypertension Status: Chronic Qualifiers: Hypertension type: essential hypertension Qualified Code(s): I10 - Essential (primary) hypertension Plan to address problem: Cardiology consulted 01/2020 TTE showed EF 40 to 45% with grade 2 diastolic dysfunction and moderate MR 05/12 coreg changed to labatalol, continue procardia Blood pressure monitoring per protocol Will need to discharge with antihypertensives f/u with cardiology within 1 to 2 weeks of discharge f/u PCP within 1 to 2 weeks of discharge (3) Hypermagnesemia Status: Acute Plan to address problem: 05/09 magnesium 4, 05/09 magnesium 5.9, 05/09 magnesium 5.3, 05/10 magnesium 4, 05/11 magnesium 2.8 S/p magnesium drip Trend magnesium Should resolve since magnesium drip is off (4) Acute renal failure Status: Acute Qualifiers: Acute renal failure type: with acute tubular necrosis Qualified Code(s): N17.0 - Acute kidney failure with tubular necrosis Plan to address problem: Patient has a history of chronic renal failure stage III Patient presented with a creatinine of 1.1, 05/09 creatinine 0.9 05/10 creatinine 1.4 and she is s/p normal saline for 1 L 04/26 16 BUN/creatinine 19/1.4 Trend BMP Avoid nephrotoxic medications Strict intake and output Follow up with personal nephrology after discharge Likely secondary to vasomotor nephropathy Patient states this is her baseline creatinine (5) DVT prophylaxis Status: Acute Plan to address problem: SCDs to bilateral extremities while in bed History Interval history: 35 YO Female at 23 weeks gestation with CHF, HTN. She is s/p csection 05/08. Today her BP medication was changed to labatelol 200 mg BID which is an approximate equivalent to her Coreg which she was taking while . Primary team as opted to discharge her today. Encouraged to follow up with PCP, cardiology and nephrology post discharge which she verbalized understanding. 05/10: Patient's hypermagnesemia is improving, remains hyponatremic, has metabolic acidosis on BMP and had a increase in her renal function 1.4/19 from 0.9/13 yesterday. Patient was on D5 IVF which was discontinued and she will be on normal saline for 1 L. We will trend her BMP. Patient also has slight leukocytosis at 12.7 which is likely secondary to her . She is also hypertensive and we increased her blood pressure medications. We will continue to monitor. 05/11: Today her BUN/Cr 19/1.4 which did not improve after 1L NS but the patient informed me yesterday that this is her baseline. Her BP is stable and her Mg decreased with resolution of her hyponatremia and metabolic acidosis. Disposition per primary. Hospitalist Physical - Physical exam Narrative exam: General appearance: Present: no acute distress, obese - EENT Eyes: Present: PERRL, EOM intact ENT: hearing intact, clear oral mucosa, dentition normal - Neck Neck: Present: supple, normal ROM - Respiratory Respiratory effort: normal Respiratory: bilateral: CTA - Cardiovascular Rhythm: regular Heart Sounds: Present: S1 & S2. Absent: systolic murmur, diastolic murmur - Extremities Extremities: no ischemia, pulses intact, pulses symmetrical, normal temperature, normal color, Full ROM Extremity abnormal: edema - Peripheral Assessment Bilateral LE Edema Type: Non-pitting Capillary Refill: < 3 seconds Skin Temperature: Warm Peripheral Pulses: within normal limits - Abdominal General gastrointestinal: soft, non-tender, non-distended - Integumentary Integumentary: Present: clear, warm, dry - Psychiatric Psychiatric: appropriate mood/affect, cooperative - Neurologic Neurologic: CNII-XII intact, no focal deficits, moves all extremities - Constitutional Vitals: Temp Pulse Resp BP Pulse Ox 98.2 F 95 H 18 136/85 97 05/12/20 08:20 05/12/20 08:20 05/12/20 08:20 05/12/20 08:20 05/12/20 08:20 General appearance: Present: no acute distress, obese Results - Labs CBC & Chem 7: 05/09/20 Unknown 05/11/20 06:55 Labs: Laboratory Last Values WBC 12.7 K/mm3 (4.5-11.0) H 05/09/20 Unknown RBC 3.29 M/mm3 (3.65-5.03) L 05/09/20 Unknown Hgb 9.5 gm/dl (10.1-14.3) L 05/09/20 Unknown Hct 29.0 % (30.3-42.9) L 05/09/20 Unknown MCV 88 fl (79-97) 05/09/20 Unknown MCH 29 pg (28-32) 05/09/20 Unknown MCHC 33 % (30-34) 05/09/20 Unknown RDW 14.9 % (13.2-15.2) 05/09/20 Unknown Plt Count 217 K/mm3 (140-440) 05/09/20 Unknown Lymph % (Auto) 18.3 % (13.4-35.0) 05/06/20 14:50 [place] % (Auto) 9.6 % (0.0-7.3) H 05/06/20 14:50 Eos % (Auto) 0.3 % (0.0-4.3) 05/06/20 14:50 Baso % (Auto) 0.1 % (0.0-1.8) 05/06/20 14:50 Lymph # (Auto) 2.0 K/mm3 (1.2-5.4) 05/06/20 14:50 [place] # (Auto) 1.0 K/mm3 (0.0-0.8) H 05/06/20 14:50 Eos # (Auto) 0.0 K/mm3 (0.0-0.4) 05/06/20 14:50 Baso # (Auto) 0.0 K/mm3 (0.0-0.1) 05/06/20 14:50 Seg Neutrophils % 71.7 % (40.0-70.0) H 05/06/20 14:50 Seg Neutrophils # 7.7 K/mm3 (1.8-7.7) 05/06/20 14:50 Sodium 137 mmol/L (137-145) 05/11/20 06:55 Potassium 3.7 mmol/L (3.6-5.0) 05/11/20 06:55 Chloride 104.5 mmol/L (98-107) 05/11/20 06:55 Carbon Dioxide 25 mmol/L (22-30) 05/11/20 06:55 Anion Gap 11 mmol/L 05/11/20 06:55 BUN 19 mg/dL (7-17) H 05/11/20 06:55 Creatinine 1.4 mg/dL (0.6-1.2) H 05/11/20 06:55 Estimated GFR 52 ml/min 05/11/20 06:55 BUN/Creatinine Ratio 14 % 05/11/20 06:55 Glucose 93 mg/dL (65-100) 05/11/20 06:55 Uric Acid 5.1 mg/dL (3.5-7.6) 05/08/20 14:50 Calcium 8.6 mg/dL (8.4-10.2) 05/11/20 06:55 Magnesium 2.80 mg/dL (1.7-2.3) H 05/11/20 06:55 Total Bilirubin 0.50 mg/dL (0.1-1.2) 05/09/20 Unknown AST 68 units/L (5-40) H 05/09/20 Unknown ALT 301 units/L (7-56) H 05/09/20 Unknown Alkaline Phosphatase 45 units/L (35-129) 05/09/20 Unknown Lactate Dehydrogenase 294 units/L (91-180) H 05/06/20 14:50 Total Protein 4.8 g/dL (6.3-8.2) L 05/09/20 Unknown Albumin 2.4 g/dL (3.9-5) L 05/09/20 Unknown Albumin/Globulin Ratio 1.0 % 05/09/20 Unknown Urine Color Yellow (Yellow) 05/06/20 16:55 Urine Turbidity Slightly-cloudy (Clear) 05/06/20 16:55 Urine pH 6.0 (5.0-7.0) 05/06/20 16:55 Ur Specific [place] 1.012 (1.003-1.030) 05/06/20 16:55 Urine Protein >500 mg/dL (Negative) 05/06/20 16:55 Urine Glucose (UA) Neg mg/dL (Negative) 05/06/20 16:55 Urine Ketones Neg mg/dL (Negative) 05/06/20 16:55 Urine Blood Sm (Negative) 05/06/20 16:55 Urine Nitrite Neg (Negative) 05/06/20 16:55 Urine Bilirubin Neg (Negative) 05/06/20 16:55 Urine Urobilinogen < 2.0 mg/dL (<2.0) 05/06/20 16:55 Ur Leukocyte Esterase Mod (Negative) 05/06/20 16:55 Urine WBC (Auto) 12.0 /HPF (0.0-6.0) H 05/06/20 16:55 Urine RBC (Auto) 14.0 /HPF (0.0-6.0) 05/06/20 16:55 U Epithel Cells (Auto) 18.0 /HPF (0-13.0) H 05/06/20 16:55 Urine Yeast (Budding) 1+ /HPF 05/06/20 16:55 Coronavirus (PCR) Negative (Negative) 05/07/20 18:46 Blood Type A POSITIVE 05/06/20 14:50 Antibody Screen Negative 05/06/20 14:50 Todd/IV: IV Catheter Type [Right Medial INT / Saline Lock Port Hand] Active Medications - Current Medications Current Medications: Generic Name Dose Route Start Last Admin Trade Name Freq PRN Reason Stop Dose Admin Acetaminophen 1,000 mg 05/07/20 04:01 05/07/20 04:13 Acetaminophen 500 Mg Tab PO 1,000 mg Q4H PRN Administration Headache Acetaminophen 650 mg 05/07/20 04:12 05/11/20 20:15 Acetaminophen 325 Mg Tab PO 650 mg Q4H PRN Administration Pain MILD(1-3)/Fever >100.5 Docusate Sodium 100 mg 05/06/20 14:53 05/11/20 22:04 Docusate Sodium 100 Mg Cap PO 100 mg Q12H PRN Administration Constipation Hydralazine HCl 5 mg 05/06/20 16:03 05/08/20 21:12 Hydralazine 20 Mg/1 Ml Inj IV 5 mg Q30MIN PRN Administration Blood Pressure Oxytocin/Sodium Chloride 30 units in 500 mls @ 40 mls/hr 05/08/20 16:00 Pitocin/Ns 30 Unit/500ml IV TITR INDY Protocol Labetalol HCl 200 mg 05/12/20 10:00 Labetalol 200 Mg Tab PO BID INDY Magnesium Hydroxide 30 ml 05/10/20 08:00 05/11/20 07:31 Magnesium Hydroxide (Mom) Oral Liqd Udc PO 30 ml Q4H INDY Administration Morphine Sulfate 4 mg 05/08/20 15:52 05/09/20 16:19 Morphine 4 Mg/1 Ml Inj IV 4 mg Q4H PRN Administration Pain , Severe (7-10) Multi-Ingredient Ointment /13/20 15:52 Lanolin/Zinc/Dimethicone (Lansinoh) 7 Gm TP PRN PRN dryness/cracking Multivitamins/Iron/Calcium 1 each 05/07/20 10:00 05/11/20 10:18 [id number] Fumarate-Folic Acid Vit Tab PO 1 each QDAY INDY Administration Naloxone HCl 0.2 mg 05/08/20 17:17 Naloxone 0.4 Mg/1 Ml Inj IV Q2MIN PRN Res Rate </= 8 or 02 SAT < 92% Nifedipine 60 mg 05/10/20 22:00 05/11/20 22:04 Nifedipine Xl 60 Mg Tab PO 60 mg Q12HR INDY Administration Ondansetron HCl 4 mg 05/08/20 17:17 Ondansetron 4 Mg/2 Ml Inj IV Q8H PRN Nausea And Vomiting Oxycodone/Acetaminophen 2 tab 05/08/20 15:52 05/12/20 03:25 Oxycodone /Acetaminophen 5-325mg Tab PO 2 tab Q4H PRN Administration Pain, Moderate (4-6) Promethazine HCl 25 mg 05/08/20 15:35 05/10/20 18:02 Promethazine 25 Mg Tab PO 25 mg Q6H PRN Administration Nausea And Vomiting Promethazine HCl 25 mg 05/08/20 15:35 Promethazine 25 Mg Rect Supp [place] Q6H PRN Nausea And Vomiting Sodium Chloride 10 ml 05/08/20 18:00 Sodium Chloride 0.9% 10 Ml Flush Syringe IV PRN INDY Witch Awilda/Glycerin 1 each 05/08/20 15:52 Witch Awilda/ Glycerin Pad TP PRN PRN Hemorrhoids/cleansing/soothing <REGINALDO CONTE - Last Filed: 05/12/20 17:39> Assessment and Plan Assessment and plan: I saw and evaluated the patient. I agree with the findings and the plan of care as documented in the Nurse Practitioner's~note, with the following corrections and additions. Hospitalist Physical - Constitutional Vitals: Temp Pulse Resp BP Pulse Ox 98.4 F 80 18 132/80 97 05/12/20 12:05 05/12/20 12:05 05/12/20 12:05 05/12/20 12:05 05/12/20 12:05 Results - Labs CBC & Chem 7: 05/09/20 Unknown 05/11/20 06:55 Labs: Laboratory Last Values WBC 12.7 K/mm3 (4.5-11.0) H 05/09/20 Unknown RBC 3.29 M/mm3 (3.65-5.03) L 05/09/20 Unknown Hgb 9.5 gm/dl (10.1-14.3) L 05/09/20 Unknown Hct 29.0 % (30.3-42.9) L 05/09/20 Unknown MCV 88 fl (79-97) 05/09/20 Unknown MCH 29 pg (28-32) 05/09/20 Unknown MCHC 33 % (30-34) 05/09/20 Unknown RDW 14.9 % (13.2-15.2) 05/09/20 Unknown Plt Count 217 K/mm3 (140-440) 05/09/20 Unknown Lymph % (Auto) 18.3 % (13.4-35.0) 05/06/20 14:50 [place] % (Auto) 9.6 % (0.0-7.3) H 05/06/20 14:50 Eos % (Auto) 0.3 % (0.0-4.3) 05/06/20 14:50 Baso % (Auto) 0.1 % (0.0-1.8) 05/06/20 14:50 Lymph # (Auto) 2.0 K/mm3 (1.2-5.4) 05/06/20 14:50 [place] # (Auto) 1.0 K/mm3 (0.0-0.8) H 05/06/20 14:50 Eos # (Auto) 0.0 K/mm3 (0.0-0.4) 05/06/20 14:50 Baso # (Auto) 0.0 K/mm3 (0.0-0.1) 05/06/20 14:50 Seg Neutrophils % 71.7 % (40.0-70.0) H 05/06/20 14:50 Seg Neutrophils # 7.7 K/mm3 (1.8-7.7) 05/06/20 14:50 Sodium 137 mmol/L (137-145) 05/11/20 06:55 Potassium 3.7 mmol/L (3.6-5.0) 05/11/20 06:55 Chloride 104.5 mmol/L (98-107) 05/11/20 06:55 Carbon Dioxide 25 mmol/L (22-30) 05/11/20 06:55 Anion Gap 11 mmol/L 05/11/20 06:55 BUN 19 mg/dL (7-17) H 05/11/20 06:55 Creatinine 1.4 mg/dL (0.6-1.2) H 05/11/20 06:55 Estimated GFR 52 ml/min 05/11/20 06:55 BUN/Creatinine Ratio 14 % 05/11/20 06:55 Glucose 93 mg/dL (65-100) 05/11/20 06:55 Uric Acid 5.1 mg/dL (3.5-7.6) 05/08/20 14:50 Calcium 8.6 mg/dL (8.4-10.2) 05/11/20 06:55 Magnesium 2.80 mg/dL (1.7-2.3) H 05/11/20 06:55 Total Bilirubin 0.50 mg/dL (0.1-1.2) 05/09/20 Unknown AST 68 units/L (5-40) H 05/09/20 Unknown ALT 301 units/L (7-56) H 05/09/20 Unknown Alkaline Phosphatase 45 units/L (35-129) 05/09/20 Unknown Lactate Dehydrogenase 294 units/L (91-180) H 05/06/20 14:50 Total Protein 4.8 g/dL (6.3-8.2) L 05/09/20 Unknown Albumin 2.4 g/dL (3.9-5) L 05/09/20 Unknown Albumin/Globulin Ratio 1.0 % 05/09/20 Unknown Urine Color Yellow (Yellow) 05/06/20 16:55 Urine Turbidity Slightly-cloudy (Clear) 05/06/20 16:55 Urine pH 6.0 (5.0-7.0) 05/06/20 16:55 Ur Specific [place] 1.012 (1.003-1.030) 05/06/20 16:55 Urine Protein >500 mg/dL (Negative) 05/06/20 16:55 Urine Glucose (UA) Neg mg/dL (Negative) 05/06/20 16:55 Urine Ketones Neg mg/dL (Negative) 05/06/20 16:55 Urine Blood Sm (Negative) 05/06/20 16:55 Urine Nitrite Neg (Negative) 05/06/20 16:55 Urine Bilirubin Neg (Negative) 05/06/20 16:55 Urine Urobilinogen < 2.0 mg/dL (<2.0) 05/06/20 16:55 Ur Leukocyte Esterase Mod (Negative) 05/06/20 16:55 Urine WBC (Auto) 12.0 /HPF (0.0-6.0) H 05/06/20 16:55 Urine RBC (Auto) 14.0 /HPF (0.0-6.0) 05/06/20 16:55 U Epithel Cells (Auto) 18.0 /HPF (0-13.0) H 05/06/20 16:55 Urine Yeast (Budding) 1+ /HPF 05/06/20 16:55 Coronavirus (PCR) Negative (Negative) 05/07/20 18:46 Blood Type A POSITIVE 05/06/20 14:50 Antibody Screen Negative 05/06/20 14:50 Todd/IV: IV Catheter Type [Right Medial INT / Saline Lock Port Hand]
[2020-05-12] MEDS: PRENATAL VIT27-FE FUMARATE-FOLIC ACID VIT TAB PO SCH (10:14)
[2020-05-12] MEDS: NIFEdipine XL 60 MG TAB PO SCH (10:14)
[2020-05-12 13:15] VITALS: BP 132/80
== END 2020-05-12 12:30 | disposition home or self-care (01) | DRG 765 ==
LOC: LD 13:57 → OB 05-09 18:57
PROVIDERS: ADMIT Obstetrics & Gynecology; ATTEND Obstetrics & Gynecology
PROC: 10D00Z1 Extraction of Products of Conception, Low, Open Approach (ICD-10-PCS; principal; 2020-05-08)
DX: O36.5920 Maternal care for other known or suspected poor fetal growth, second trimester, not applicable or unspecified (principal); O60.12X0 Preterm labor second trimester with preterm delivery second trimester, not applicable or unspecified; O99.412 Diseases of the circulatory system complicating pregnancy, second trimester; E87.1 Hypo-osmolality and hyponatremia; O11.4 Pre-existing hypertension with pre-eclampsia, complicating childbirth; O10.32 Pre-existing hypertensive heart and chronic kidney disease complicating childbirth; Z20.828 Contact with and (suspected) exposure to other viral communicable diseases; Z3A.26 26 weeks gestation of pregnancy; Z37.0 Single live birth; Z82.49 Family history of ischemic heart disease and other diseases of the circulatory system; N18.9 Chronic kidney disease, unspecified; I50.9 Heart failure, unspecified; O99.214 Obesity complicating childbirth; E66.9 Obesity, unspecified; O90.89 Other complications of the puerperium, not elsewhere classified; E83.42 Hypomagnesemia; R71.0 Precipitous drop in hematocrit
CPT/HCPCS: 36415; 80048; 80053; 81001; 82565; 83615; 83735; 84450; 84460; 84550; 85025; 85027; 86850; 86900; 86901; 87086; 88305; 96372; G0378; J0360; J0702; J1100; J1170; J1885; J2250; J2270; J2405; J2590; J2765; J3475; J3490; J7120; Q0169; U0003